=== PATIENT | male | born 1950 | race Caucasian/White ===

== ENCOUNTER 2023-07-16 17:25 | Emergency (ER) | payer MEDICARE, BC, SELFPAY ==
[2023-07-16 17:42] VITALS: BP 150/94; PULSE 87; RESP 16; TEMP 36.2; O2SAT 98; BMI 25.8
--- NOTE | 2023-07-16 17:49 | CRLHL7_ITS ---
For Patients: As a result of the Century Cures Act, medical imaging exams and procedure reports are released immediately into your electronic medical record. You may view this report before your referring provider. If you have questions, please contact your health care provider. Indication: Trauma. Technique: Left wrist, 3 views. Comparison: None. Findings: Bones: Comminuted intra-articular fracture of the distal radius.. Joint spaces: Unremarkable. Soft tissues: Soft tissue swelling surrounding the fracture site.. Impression: Comminuted intra-articular fracture of the distal radius. Dictated by Elkin Alicia MD @ 07/16/2023 7:55:22 PM (Electronically Signed)
--- OUTSIDE RECORDS SUMMARY | 2023-07-16 18:31 | XMS_ITS | Continuity of Care Document ---
Author Name Unknown Organization [facility] Address [address] [facility] [place] [address] Phone Care Team Providers Care Pickler Helper Name Role Phone Amador Paige Unavailable Unavailable Allergies, Adverse Reactions, Alerts Substance Reaction Status Criticality pollen extracts Nasal congestion Active No Infor mation house dust Nasal congestion Active No Informat ion Medications Medication Instructions Dosage Effective Dates (start - stop) Status Comments Tylenol Arthritis Pain 650 mg tablet,extended release take 1 tablet by ORAL route 4 times every day as needed 650 MG - Active metoprolol tartrate 25 mg tablet take 0.5 tablet by oral route every day 12.5 MG - Active Advil 200 mg tablet take 1 tablet by ora l route every 6 hours as needed with food as needed 200 MG - Active Voltaren Arthritis Pain 1 % topical gel apply 2 gram by topical route 4 times every day to the affected area(s) as needed 2.00 gram - Active lidocaine 4 % topical cream - Active Procedures Procedure Date OFFICE/OUTPATIENT VISIT, EST PT EVAL LOW COMPLEX 20 MIN THERAPEUTIC EXERCISES OFFICE VISIT, EST TELEMEDICINE 22 SCS Post Op Satellite SCS Post Op Satellite No Charge For Visit Per Prov IMPLANT NEUROELECTRODES ASC IMPLANT NEUROELECTRODES ASC INSRT/REDO SPINE N GENERATOR Foll-up eval q3mo opiod tx OFFICE VISIT, EST TELEMEDICINE Lower Back LSO Brace ORTHOTIC MGMT AND TRAINING Initial Encou nter No Charge For Visit Per Prov IMPLANT NEUROELECTRODES ASC IMPLANT NEUROELECTRODES ASC ANALYZE NEUROSTIM, COMPLEX Psych Dx Eval OFFICE/OUTPATIENT VISIT, EST OFFICE/OUTPATIENT VISIT, EST INJ FORAMEN EPIDURAL L/S BILATERAL OFFICE/OUTPATIENT VISIT, NEW Advance Directives Directive Yes / No Effective Date File Name No Information Encounters Encounter Description Practice Location Reason(s) For Visit Diagnoses Date Provider Providers Copied on Encounter [facility] [place] [facility], [address] [place] [address], [id number] , [place] tel:[phone] [facility] [place] [facility] [place] No Information 3 Ama English. [address] [facility] [address], [place], [id number] , [place]. tel:[phone] [facility] [place] [facility], [address], [place], [id number] , [place] tel:[phone] [facility] [place] [facility] [place] Radiculopathy, lumbar region 3 Jose Wall. [address] [place], [id number] , [place]. tel:[phone] Referring Provider: Amador Serrato, [address], [place], [address] . tel:[phone] OFFICE/OUTPAT IENT VISIT, EST [facility] [place] [facility], [address], [place], [id number] , [place] tel:[phone] [facility] [place] [facility] Peculiar Back Pain (chief complaint) Chronic pain syndromeSpondylosi s without myelopathy or radiculopathy, lumbar regionOther intervertebral disc degeneration, lumbar regionRadiculopath y, lumbar regionMyalgia, other siteOther group home (current) drug therapy 2 Ama English. [address], [place], [id number] , [place]. tel: [phone] Referring Provider: Duke Chou, [address] [place] [address] [place], [address] . tel:[phone] [facility] [place] [facility], [address] [place] [address] [place], [id number] , [place] tel: [phone] [facility] lumbago (chief complaint) Spondylosis without myelopathy or radiculopathy, lumbar regionRadiculopath y, lumbar region Ascencion-0 2 Lakshmi Gardiner Richard. [address] [place], [place] [address], [id number] , [place]. tel: [phone] Referring Provider: Aamdor Serrato, [address] [place] [address] [address], [place], [address] . tel:[phone] OFFICE VISIT, [facility] TELEMEDICINE [facility] [place] [facility], [address] [place] [address], [id number] , [place] tel: [phone] [facility] [place] [facility] Back Pain (chief complaint) Other intervertebral disc degeneration, lumbar regionChronic pain syndromeSpondylosi s without myelopathy or radiculopathy, lumbar regionMyalgia, other siteOther group home (current) drug therapyRadiculopat hy, lumbar region Dec-2 - 2 Ama English. [address] [place] [address] [address], [place], [place], [id number] , [place]. tel: [phone] Referring Provider: Duke Chou, [address] [place], [place] [address], [address] . tel:[phone] [facility] [place] [facility], [address] [place] [address], [id number] , [place] tel: [phone] [facility] [place] [facility] Radiculopathy, lumbar region Dec-1 - 2 Ama English. [address] [place] [address] [address], [place], [place], [id number] , [place]. tel: [phone] Referring Provider: Amador Serrato, [address] [place] [address] [address], [place], [address] . tel:[phone] [facility] [place] [facility], [address], [place], [id number] , [place] tel: [phone] [facility] Elsie Radiculopathy, lumbar region Dec-0 2 Campos Heriberto. [facility], [address], [place], [address], [place]. tel: [phone] Referring Provider: Amador Serrato, [address] [place] [address] [address], [place], [address] . tel:[phone] OFFICE VISIT, EST TELEMEDICINE [facility] [place] [facility], [address] [place] [address], [id number] , [place] tel: [phone] [facility] [place] [facility] Radiculopathy, lumbar region 2 Ama English. [address] [place] [address] [address], [place], [place], [id number] , [place]. tel: [phone] [facility] [place] [facility], [address] [place] [address], [id number] , [place] tel: [phone] [facility] [place] [facility] No Information 2 Ama English. [address] [place] [address] [address], [place], [place], [id number] , [place]. tel: [phone] Referring Provider: Amador eSrrato, [address] [place] [address] [address], [place], [address] . tel:[phone] [facility] [place] [facility], [address] [place] [address], [id number] , [place] tel: [phone] [facility] [place] [facility] P[facility]uliar Radiculopathy, lumbar regionOther intervertebral disc degeneration, lumbar region 2 Ama English. [address] [place] [address] [address], [place], [place], [id number] , [place]. tel: [phone] Referring Provider: Amador Serrato, [address] [place] [address] [address], [place], [address] . tel:[phone] [facility] [place] [facility], [address] [place] [address], [id number] , [place] tel: [phone] [facility] Elsie Radiculopathy, lumbar region 2 Beth Louis. [facility], [address], [place], [address], [place]. tel: [phone] Referring Provider: Amador Serrato, [address] [place] [address] [address], [place], [address] . tel:[phone] Psych Dx Eval [facility] [place] [facility], [address] [place] [address], [id number] , [place] tel: [phone] Telehealth Pain disorder with related psychological factors 2 Deborah [place]. [address] [place] [address], [id number] , [place]. tel: [phone] Referring Provider: Duke Chou, [address] [place] [address], [address] . tel:[phone] OFFICE/OUTPAT IENT VISIT, [facility], [address] [place] [address], [id number] , [place] tel:[phone] [facility] [place] [facility] Back Pain (chief complaint) Chronic pain syndromeRadiculopa thy, lumbar regionMyalgia, other siteOther termite control servicer (current) drug therapySpondylosis without myelopathy or radiculopathy, lumbar regionOther intervertebral disc degeneration, lumbar region 2 Ama English. [address] [place] [address] [address], [place], [place], [id number] , [place]. tel: [phone] Referring Provider: Amador Serrato, [address] [place] [address] [address], [place], [address] . tel:[phone] OFFICE/OUTPAT IENT VISIT, [facility], [address] [place] [address], [id number] , [place] tel: [phone] [facility] [place] [facility] Back Pain (chief complaint) Chronic pain syndromeRadiculopa thy, lumbar regionMyalgia, other siteOther group home (current) drug therapy 1 Ama English. [address] [facility], [place], [place], [id number] , [place]. tel:[phone] Referring Provider: Amador Serrato, [facility] [facility], [place], [address] . tel:[phone] [facility] [place] [facility], [address], [place], [id number] , [place] tel: [phone] [facility] Elsie Radiculopathy, lumbar region 1 Beth Louis. [facility], [address], [place], [address], [place]. [phone] Referring Provider: Amador Serrato, [facility] [facility] [address] [facility] [address], [place], [address] . tel:[phone] OFFICE/OUTPAT IENT VISIT, [facility], [address], [place], [id number] , [place] tel:[phone] [facility] [place] [facility] Peculiar Back Pain (chief complaint) Chronic pain syndromeRadiculopa thy, lumbar regionMyalgia, other siteEncounter for screening for other disorder 1 Ama English. [address] [place] [address] [address], [place], [place], [id number] , [place]. tel:[phone] Referring Provider: Duke Chou, [address] [facility] [place], [address] . tel:[phone] Family History Family Member Type Diagnosis Age At Onset Problem Family history of chronic ba ck pain Payers Payer name Insurance type Covered constitution party ID [employer] wing(s) Medicare MB [id number] Social History Type Description Quantity Date Captured Comments Alcohol Use Details Unknown Caffeine Use Details Unknown Tobacco Use Status No Information Smoking Status No Information Sex Male Chief Complaint And Reason For Visit No Information Reason For Referral Reason For Referral No Information Plan Of Treatment Date Type Action Status Goal FIT. Due on due Goal Lipid panel. Due on due Goal Update Social Hi story. Due on due Goal Height. Due on d ue Goal Tobacco Use. Due on due Goal Medication Recon ciliation. Due on due Goal CT-Colonography. Due on due Goal Zoster vaccine ( 1st). Due on due Goal Hepatitis C scre ening. Due on due Goal Review Allergy L ist. Due on due Goal FIT-DNA. Due on due Goal PHQ-9. Due on du e Goal Weight. Due on d ue Goal Unhealthy drug u se screening. Due on due Goal Zoster vaccine ( ). Due on due Goal Lipid panel. Due on due Goal Height. Due on d ue Goal FIT. Due on due Goal Update Social Hi story. Due on due Goal Tobacco Use. Due on due Goal Review Allergy L ist. Due on due Goal Medication Recon ciliation. Due on due Goal FIT-DNA. Due on due Goal CT-Colonography. Due on due Goal PHQ-9. Due on du e Goal Hepatitis C scre ening. Due on due Goal Unhealthy drug u se screening. Due on due Goal Weight. Due on d ue Goal CT-Colonography. Due on due Goal Review Allergy L ist. Due on due Goal Medication Recon ciliation. Due on due Goal PHQ-9. Due on du e Goal Unhealthy drug u se screening. Due on due Goal Height. Due on d ue Goal Zoster vaccine ( ). Due on due Goal Hepatitis C scre ening. Due on due Goal Update Social Hi story. Due on due Goal Lipid panel. Due on due Goal FIT. Due on due Goal Tobacco Use. Due on due Goal Weight. Due on d ue Goal FIT-DNA. Due on due Goal Hepatitis C scre ening. Due on due Goal Medication Recon ciliation. Due on due Goal Review Allergy L ist. Due on due Goal Update Social Hi story. Due on due Goal Weight. Due on d ue Goal Height. Due on d ue Goal Unhealthy drug u se screening. Due on due Goal FIT-DNA. Due on due Goal PHQ-9. Due on du e Goal Zoster vaccine ( 1st). Due on due Goal Lipid panel. Due on due Goal CT-Colonography. Due on due Goal FIT. Due on due Goal Tobacco Use. Due on due Goal Review Allergy L ist. Due on due Goal PHQ-9. Due on du e Goal Height. Due on d ue Goal Tobacco Use. Due on due Goal Update Social Hi story. Due on due Goal Weight. Due on d ue Goal Medication Recon ciliation. Due on due Goal Weight. Due on d ue Goal Medication Recon ciliation. Due on due Goal PHQ-9. Due on du e Goal Review Allergy L ist. Due on due Goal Tobacco Use. Due on due Goal Update Social Hi story. Due on due Goal Height. Due on d ue Goal Height. Due on d ue Goal Tobacco Use. Due on due Goal PHQ-9. Due on du e Goal Update Social Hi story. Due on due Goal Weight. Due on d ue Goal Review Allergy L ist. Due on due Goal Medication Recon ciliation. Due on due Goal Tobacco Use. Due on due Goal Review Allergy L ist. Due on due Goal Weight. Due on d ue Goal Medication Recon ciliation. Due on due Goal PHQ-9. Due on du e Goal Update Social Hi story. Due on due Goal Height. Due on d ue Goal Review Allergy L ist. Due on due Goal PHQ-9. Due on du e Goal Tobacco Use. Due on due Goal Update Social Hi story. Due on due Goal Medication Recon ciliation. Due on due Goal Weight. Due on d ue Goal Height. Due on d ue Goal Medication Recon ciliation. Due on due Goal Height. Due on d ue Goal Tobacco Use. Due on due Goal PHQ-9. Due on du e Goal Weight. Due on d ue Goal Update Social Hi story. Due on due Goal Review Allergy L ist. Due on due Goal Height. Due on d ue Goal Tobacco Use. Due on 022 due Goal Weight. Due on d ue Goal Review Allergy L ist. Due on due Goal Medication Recon ciliation. Due on due Goal PHQ-9. Due on du e Goal Update Social Hi story. Due on due Goal Height. Due on d ue Goal Medication Recon ciliation. Due on due Goal Review Allergy L ist. Due on due Goal Update Social Hi story. Due on due Goal Tobacco Use. Due on due Goal Weight. Due on d ue Goal PHQ-9. Due on du e Goal Review Allergy L ist. Due on due Goal PHQ-9. Due on du e Goal Tobacco Use. Due on due Goal Medication Recon ciliation. Due on due Goal Update Social Hi story. Due on due Goal Weight. Due on d ue Goal Height. Due on d ue Future Order: Radiology Order MR I Lumbar Spine W/O Dye ([id number]), Ordered on: Ordered History Of Present Illness Encounter Date Complaint History Of Flaquita nt Illness Back Pain Severity level i s 4. Duration: chronic. The problem is fluctuating. It occurs intermittently. Pain is radiated to the left ankle, right ankle, left calf, right calf, left foot and right foot. The client describes the pain as an ache and tingling. Symptoms are aggravated by standing and walking. Symptoms are relieved by lying down, over the counter medication, pain meds/drugs, rest and changing positions. Comments: Amador presents for follow-up regarding low back pain. Reports pain has been fluctuating since [place]. Notes occasional flares. Utilizes Tylenol during flares. Continues to be active on his bike. States he rode ~43 miles in one day last week.S/p [employer] lumbar SCS implant on 01/04/[address] Avery. States he is currently getting about 50% relief of lower back and BLE pain. May be interested in reprogramming with [employer] rep.Of note, he recently traveled to [place] and [place] and enjoyed his trip.He is not accompanied today and denies additional concerns. lumbago Patient is a 71 year old male presenting s/p lumbar SCS implant. He states that he has been getting fairly significant relief. He presents today with complaints of low back pain into his left leg to his foot and ankle. He states that this only occur when he standing and walks. He notes that he has discussed these symptoms with his rep at this point. He does note that he has been able to be much more active following the SCS implant. He would like to continue to decrease his overall discomfort to allow him to perform his daily, functional activities with less limitation and an improved quality of life. Back Pain Severity level i s 4. Duration: chronic. The problem is improving. It occurs intermittently. Location of pain is left calf and left ankle.The patient describes the pain as an ache and tingling. Symptoms are aggravated by standing and walking. Symptoms are relieved by lying down, pain meds/drugs, stretching and changing positions. Back Pain (comments) Amador ents for virtual follow-up and 2 week post-op wound check. S/p [employer] lumbar SCS implant on 01/04/[address] Avery. States he is currently getting about 50% relief of lower back and BLE pain. Notes some post-op pain, but states that it has been manageable. He is excited to become active again as the weather gets warmer and his activity restrictions are lifted. Notes that he cannot wait to get back to biking. Prior to implant, patient was taking #4-5 tabs of Tylenol everyday. Notes that he has taken #4-5 tabs of Tylenol total over the past two weeks since implant. He is not accompanied today and denies additional concerns. Back Pain (comments) Amador is h ere for follow-up. He is followed for lower back pain radiating down his L leg and into his L calf and medial foot. Also, details loss of sensation in his L greater toe. Pain rarely radiates into RLE. S/p BL L5-S1 TFESI with Dr. Avery on 08/13/21 with minimal benefit. Of note, patient did not trial Cymbalta since last OV because it was $100. Also notes that he has hesitations with taking any medication that has the SE of drowsiness. Most of today's OV was spent discussing updated imaging and available treatment options. Discussed repeat injections, medication management, SCS trial, and surgical referral. Patient expresses interest in SCS trial. He is not accompanied and has no other concerns today. Back Pain Severity level i s 2. Duration: chronic. The problem is fluctuating. It occurs intermittently. Location of pain is lower back, legs, L calf and L gluteal area.The patient describes the pain as an ache, dull and tingling. Symptoms are aggravated by standing, walking and movement. Symptoms are relieved by pain meds/drugs, rest and changing positions. Back Pain (comments) Amador is h ere for initial follow-up. He is followed for lower back pain radiating down his L leg and into his L calf and medial foot. Also, details loss of sensation in his L greater toe. S/p BL L5-S1 TFESI with Dr. Avery. Patient states his pain is the same as it was before the injection. Most of today's OV, was spent discussing available treatment options and patient is agreeable to updated imaging. Specifically discussed referral for surgical consult for discectomy vs repeat LESI, patient will consider pending updated imaging results.He is not accompanied and has no other concerns. Back Pain Duration: chroni c. The problem is fluctuating. It occurs persistently. Location of pain is lower back and legs.The patient describes the pain as an ache, burning and sharp. Symptoms are aggravated by bending, lifting, standing, twisting and walking. Symptoms are relieved by pain meds/drugs and rest. Back Pain (comments) Amador is h ere for initial consult for lower back and leg pain. He is referred by family. The patient is a 71 y/o male who presents with lower back pain that has gradually worsened over the past year. He previously followed at [facility] for imaging and work-up. States pain occurs in his lower back and radiating down his L leg and into his L calf and medial foot. Also, details loss of sensation in his L greater toe. Of note, he details living a very active lifestyle. States he is an avid biker which does not aggravate his lower back pain. Details significant pain with walking. The patient is currently managing his pain on Tylenol, Advil, and Naproxen PRN. He has also been utilizing topical Voltaren gel and lidocaine cream with benefit. Patient is interested in pain management options offered through [facility]. Specifically discussed ESIs and medication management. Patient would like to trial an injection first. He is not accompanied today and has no other concerns. Back Pain Duration: chroni c. Location of pain is lower back and legs.The patient describes the pain as an ache, sharp and tingling. Symptoms are aggravated by ascending stairs, descending stairs, standing, walking and housework. Symptoms are relieved by lying down, pain meds/drugs, physical therapy, stretching, rest and chiropractic. Functional Status Date Functional Assessmen t No Information Instructions Date Instruction Additional Infor mation No Information Assessments Type Assessment Date No Information Patient Care Teams Name Effective Dates (start - stop) Status Members No Information
--- OUTSIDE RECORDS SUMMARY | 2023-07-16 18:31 | XMS_ITS | Continuity of Care Document ---
Author Name Unknown Organization [facility] Address [address] [facility] [place] [address] Phone Care Team Providers Care Soup Mixer Name Role Phone Amador Paige Unavailable Unavailable [...] day as needed 650 MG - Active lidocaine 4 % topical cream - Active Voltaren Arthritis Pain 1 % topical gel apply 2 gram by topical route 4 times every day to the affected area(s) as needed 2.00 gram - Active Advil 200 mg tablet take 1 tablet by ora l route every 6 hours as needed with food as needed 200 MG - Active metoprolol tartrate 25 mg tablet take 0.5 tablet by oral route every day 12.5 MG - Active Procedures Procedure Date OFFICE/OUTPATIENT VISIT, [...] Date Provider Providers Copied on Encounter [facility], [address] [place] [address], [id number] , [place] tel:[phone] [facility] [place] No Information 3 Ama English. [address] [facility] [address], [place], [id number] , [place]. tel:[phone] [facility], [address] [place], [place], [id number] , [place] tel:[phone] [facility] [place] Radiculopathy, lumbar region 3 Jose Wall. [address] [place], [place], [id number] , [place]. tel:[phone] Referring Provider: Amador Serrato, [address] [facility] [address], [place], [address] . tel:[phone] OFFICE/OUTPAT IENT VISIT, EST [facility], [address] [place], [place], [id number] , [place] tel:[phone] [facility] [place] Back Pain (chief complaint) Chronic pain syndromeSpondylosi s without myelopathy or radiculopathy, lumbar regionOther intervertebral disc degeneration, lumbar regionRadiculopath y, lumbar regionMyalgia, other siteOther assisted (current) drug therapy 2 Ama English. [address] [facility] [address], [place], [id number] , [place]. tel: [phone] Referring Provider: Duke Chou, [address] [place] [address] [place], [address] . tel:[phone] [facility], [address] [place] [address] [place], [id number] , [place] tel: [phone] [facility] lumbago (chief complaint) Spondylosis without myelopathy or radiculopathy, lumbar regionRadiculopath y, lumbar region Ascencion-0 2 Lakshmi Gardiner Richard. [address] [place], [place] [address], [id number] , [place]. tel: [phone] Referring Provider: Amador Serrato, [address] [place] [address] [address], [place], [address] . tel:[phone] OFFICE VISIT, [facility] TELEMEDICINE [facility], [address] [place] [address], [id number] , [place] tel: [phone] [facility] Back Pain (chief complaint) Other intervertebral disc degeneration, lumbar regionChronic pain syndromeSpondylosi s without myelopathy or radiculopathy, lumbar regionMyalgia, other siteOther assisted (current) drug therapyRadiculopat hy, lumbar region Dec-2 - 2 Ama English. [address] [place] [address] [address], [place], [place], [id number] , [place]. tel: [phone] Referring Provider: Duke Chou, [address] [place], [place] [address], [address] . tel:[phone] [facility], [address] [place] [address], [id number] , [place] tel: [phone] [facility] Radiculopathy, lumbar region Dec-1 - 2 Ama English. [address] [place] [address] [address], [place], [place], [id number] , [place]. tel: [phone] Referring Provider: Amador Serrato, [address] [place] [address] [address], [place], [address] . tel:[phone] [facility], [address] [place], [place], [id number] , [place] tel: [phone] [facility] Radiculopathy, lumbar region Dec-0 2 Campos Heriberto. [facility], [address], [place], [address], [place]. tel: [phone] Referring Provider: Amador Serrato, [address] [place] [address] [address], [place], [address] . tel:[phone] OFFICE VISIT, EST TELEMEDICINE [facility], [address] [place] [address], [id number] , [place] tel: [phone] [facility] Radiculopathy, lumbar region 2 Ama English. [address] [place] [address] [address], [place], [place], [id number] , [place]. tel: [phone] [facility], [address] [place] [address], [id number] , [place] tel: [phone] [facility] No Information 2 Ama English. [address] [place] [address] [address], [place], [place], [id number] , [place]. tel: [phone] Referring Provider: Amador Serrato, [address] [place] [address] [address], [place], [address] . tel:[phone] [facility], [address] [place] [address], [id number] , [place] tel: [phone] [facility] [place] Radiculopathy, lumbar regionOther intervertebral disc degeneration, lumbar region 2 Ama English. [address] [place] [address] [address], [place], [place], [id number] , [place]. tel: [phone] Referring Provider: Amador Serrato, [address] [place] [address] [address], [place], [address] . tel:[phone] [facility], [address] [place] [address], [id number] , [place] tel: [phone] [facility] Radiculopathy, lumbar region 2 Beth Louis. [facility], [address], [place], [address], [place]. tel: [phone] Referring Provider: Amador Serrato, [address] [place] [address] [address], [place], [address] . tel:[phone] Psych Dx Eval [facility], [address] [place] [address], [id number] , [place] tel: [phone] Telehealth Pain disorder with related psychological factors 2 Deborah Nj. [address] [place] [address], [id number] , [place]. tel: [phone] Referring Provider: Duke Chou, [address] [place] [address], [address] . tel:[phone] OFFICE/OUTPAT IENT VISIT, [facility], [address] [place] [address], [id number] , [place] tel:[phone] [facility] Back Pain (chief complaint) Chronic pain syndromeRadiculopa thy, lumbar regionMyalgia, other siteOther termite exterminator helper (current) drug therapySpondylosis without myelopathy or radiculopathy, lumbar regionOther intervertebral disc degeneration, lumbar region 2 Ama English. [address] [place] [address] [address], [place], [place], [id number] , [place]. tel: [phone] Referring Provider: Amador Serrato, [address] [place] [address] [address], [place], [address] . tel:[phone] OFFICE/OUTPAT IENT VISIT, [facility], [address] [place] [address], [id number] , [place] tel: [phone] [facility] Back Pain (chief complaint) Chronic pain syndromeRadiculopa thy, lumbar regionMyalgia, other siteOther assisted (current) drug therapy 1 Ama English. [facility] [facility] [address], [place], [place], [id number] , [place]. tel:[phone] Referring Provider: Amador Serrato, [facility] [facility] [address], [place], [address] . tel:[phone] [facility], [address] [place], [place], [id number] , [place] [phone] [facility] Radiculopathy, lumbar region 1 Beth Louis. [facility], [address], [place], [address], [place]. tel:[phone] Referring Provider: Amador Serrato, [facility] [facility] [address], [place], [address] . tel:[phone] OFFICE/OUTPAT IENT VISIT, [facility], [address] [place], [place], [id number] , [place] tel:[phone] [facility] [place] Back Pain (chief complaint) Chronic pain syndromeRadiculopa thy, lumbar regionMyalgia, other siteEncounter for screening for other disorder 1 Ama English. [address] [place] [address] [address], [place], [place], [id number] , [place]. tel:[phone] Referring Provider: Duke Chou, [address] [facility] [place], [address] . tel:[phone] Family History Family Member Type Diagnosis Age At Onset Problem Family history of chronic ba ck pain Payers Payer name Insurance type Covered democrat ID Almas wing(s) Medicare MB [id number] Social History Type Description Quantity Date Captured Comments Alcohol Use Details Unknown Caffeine Use Details Unknown Tobacco Use Status No Information Smoking Status No Information Sex Male Chief Complaint And Reason For Visit No Information Reason For Referral Reason For Referral No Information Plan Of Treatment Date Type Action Status Goal Zoster vaccine ( 1st). Due on due Goal Hepatitis C scre ening. Due on due Goal Review Allergy L ist. Due on due Goal FIT-DNA. Due on due Goal PHQ-9. Due on du e Goal Weight. Due on d ue Goal Unhealthy drug u se screening. Due on due Goal FIT. Due on due Goal Lipid panel. Due on 023 due Goal Update Social Hi story. Due on due Goal Height. Due on d ue Goal Tobacco Use. Due on 023 due Goal Medication Recon ciliation. Due on due Goal CT-Colonography. Due on due Goal Medication Recon ciliation. Due on due Goal FIT-DNA. Due on due Goal CT-Colonography. Due on due Goal PHQ-9. Due on du e Goal Hepatitis C scre ening. Due on due Goal Unhealthy drug u se screening. Due on due Goal Weight. Due on d ue Goal Zoster vaccine ( 1st). Due on due Goal Lipid panel. Due on 023 due Goal FIT. Due on due Goal Update Social Hi story. Due on due Goal Tobacco Use. Due on 023 due Goal Review Allergy L ist. Due on due Goal Height. Due on d ue Goal CT-Colonography. Due [...] on due Goal Tobacco Use. Due on 022 due [...] Goal Tobacco Use. Due on due Goal Height. Due on d ue Goal PHQ-9. Due on du e Goal Review Allergy L ist. Due on due Goal Height. Due on d ue Goal Update Social Hi story. Due on due Goal Tobacco Use. Due on due Goal Review Allergy L ist. Due on due Goal PHQ-9. Due on du e Goal Medication Recon ciliation. Due on due [...] Goal Height. Due on d ue Goal Update Social [...] Goal Tobacco Use. Due on due Goal Height. Due on d ue Goal Weight. Due on d ue Goal [...] due Goal Weight. 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 Back Pain Severity level i s 4. [...] medication, pain meds/drugs, rest and changing positions. lumbago Patient is a 71 year old [...] an improved quality of life. Back Pain (comments) Amador pres ents for virtual follow-up and 2 week [...] today and denies additional concerns. Back Pain Severity level i s 4. Duration: chronic. The problem is improving. It occurs intermittently. Location of pain is left calf and left ankle.The patient describes the pain as an ache and tingling. Symptoms are aggravated by standing and walking. Symptoms are relieved by lying down, pain meds/drugs, stretching and changing positions. Back Pain Severity level i s 2. [...] has no other concerns today. Back Pain Duration: chroni c. The problem [...] meds/drugs, physical therapy, stretching, rest and chiropractic. Back Pain (comments) Amador is h ere for initial consult for lower back and leg pain. He is referred by family. The patient is a 71 y/o male who presents with lower back pain that has gradually worsened over the past year. He previously followed at [facility] for imaging and work-up. States pain occurs [...] interested in pain management options offered through [facility]. Specifically discussed ESIs and medication management. Patient would like to trial an injection first. He is not accompanied today and has no other concerns. Functional Status Date Functional Assessmen t No Information Instructions Date Instruction Additional Infor mation No Information Assessments Type Assessment Date No Information Patient Care Teams Name Effective Dates (start - stop) Status Members No Information
--- OUTSIDE RECORDS SUMMARY | 2023-07-16 18:31 | XMS_ITS | Continuity of Care Document ---
Author Name Unknown Organization [facility] Address [address] [address] [place] [address] Phone Care Team Providers Care Gas Generator Operator Name Role Phone Tash Hayes CRNA Unavailable Unavailable Allergies, Adverse Reactions, Alerts Substance Reaction Status Criticality mold Active No Information WARNIN allergy(ies) could not be collected because the type is not supported. Please contact the source practice for further details. Medications Medication Instructions Dosage Effective Dates (start - stop) Status Comments metoprolol succinate ER 25 mg tablet,extended release 24 hr take 1/2 tablet by oral route every day - Active SIMVASTATIN (unknown strength) take 1 tablet by oral route every day in the evening Not Available - Active Fiber Gummies 2 gram chewable tablet take 1 tablet by oral route every day 1 tablet - Active Procedures Procedure Date Colorectal Ca Scrn Not Hi Risk Colorectal Ca Scrn Not Hi Risk 20 Advance Directives Directive Yes / No Effective Date File Name No Information Encounters Encounter Description Practice Location Reason(s) For Visit Diagnoses Date Provider Providers Copied on Encounter [facility], [address] [address], [place], [place], [id number], [place] tel:[phone] [place] [facility] No Information 0 Freddy Bianchi. [address] [facility], [place], [place], [id number] , [place]. tel:[phone] Referring Provider: Sera Massey, [address] [facility] [address], [place], [address] . tel:[phone] [facility], [address] [address], [place], [id number], [place] tel:[phone] [facility] Screening ColonoscopyDivertic ulosis of colon without diverticulitisEncou nter for screening for malignant neoplasm of colonDvrtclos of lg int w/o perforation or abscess w/o bleeding Sep-1 0-202 0 Kita Zamora . [address] [facility], [place], [id number] , [place]. [phone] Referring Provider: Yakov Morse MD, [address] [place] [address], [address]. tel:[phone] [facility], [address] [address], [place], [id number], [place] tel:[phone] [facility] Screening ColonoscopyEncounte r for screening for malignant neoplasm of colon Sep-0 9 0 Mati Guillen. [address] [facility], [facility] [place], [id number] , [place]. [phone] Referring Provider: Referral Self. [facility], [address] [address], [place], [id number], [place] tel:[phone] [facility] No Information Sep-0 0 Mati Guillen. [address] [facility], [facility] [address], [employer] [place], [place], [id number] , [place]. [phone] Family History Family Member Type Diagnosis Age At Onset No Information Immunizations Vaccine Date Status Comments influenza, high dose seasona l, preservative-free administered Note: [facility] bi-direct ional interface ; Source: Other Registry influenza, high dose seasona l, preservative-free administered Note: [facility] bi-direct ional interface ; Source: Other Registry Influenza administered Note: [facility] bi-d irectional interface ; Source: Other Registry Prevnar 13 administered Note: [facility] bi-d irectional interface ; Source: Other Registry zoster vaccine, live administered Note: [facility] bi-directional interface ; Source: Other Registry Pneumovax 23 administered Note: [facility] bi-d irectional interface ; Source: Other Registry Fluzone Quad 6mo or older administered Note: [facility] bi-direct ional interface ; Source: Other Registry Influenza, seasonal, injecta ble, preservative free administered Note: [facility] bi-direct ional interface ; Source: Other Registry tetanus toxoid, reduced diphtheria toxoid, and acellular pertussis vaccine, adsorbed administered Note: [facility] b i-directional interface ; Source: Other Registry Influenza, seasonal, injectable administe red Note: [facility] bi- directional interface ; Source: Other Registry Novel [id number], all formulations administered Note: [facility] bi-direct ional interface ; Source: Other Registry Influenza, seasonal, injectable administe red Note: [facility] bi- directional interface ; Source: Other Registry Influenza, seasonal, injectable administe red Note: [facility] bi- directional interface ; Source: Other Registry tetanus and diphtheria toxoi ds, adsorbed, preservative free, for adult use (2 Lf of tetanus toxoid and 2 Lf of diphtheria toxoid) administered Note: [facility] bi-direct ional interface ; Source: Other Registry Influenza, seasonal, injectable administe red Note: [facility] bi- directional interface ; Source: Other Registry Payers Payer name Insurance type Covered constitution party ID Authoriza tion(s) Medicare NGS [id number] [facility] Medicare Supplement BL [id number] Social History Type Description Quantity Date Captured Comments Sex Male Smoking Status No Information Chief Complaint And Reason For Visit No Information Reason For Referral Reason For Referral No Information History Of Present Illness Encounter Date Complaint History Of Prese nt Illness No Information Functional Status Date Functional Assessmen t No Information Instructions Date Instruction Additional Infor mation Colon Cancer Prevention Related to Screening Colonoscopy High Fiber Diet Related to Scree yun Colonoscopy Diverticulosis/Diverticulitis Re lated to Screening Colonoscopy Colon Cancer Prevention Related to Screening Colonoscopy Assessments Type Assessment Date No Information Patient Care Teams Name Effective Dates (start - stop) Status Members No Information
--- OUTSIDE RECORDS SUMMARY | 2023-07-16 18:31 | XMS_ITS | Continuity of Care Document ---
Author Name Unknown Organization [facility] Address [address] [place] [address] Care Team Providers Care Shaft Sinker Name Role Phone Reji Greer CRNA Unavailable Unavailable Procedures Procedure Date ANESTH, HEAD/NECK/PTRUNK Percutaneous Image guided neuromodulatio n or intra Advance Directives Directive Yes / No Effective Date File Name No Information Encounters Encounter Description Practice Location Reason(s) For Visit Diagnoses Date Provider Providers Copied on Encounter [facility], [address] [place], [place], [id number], [facility] No Information 2 Percy Mendoza. [address] [place], [place], [id number] , . [phone] Referring Provider: Heriberto Campos [facility] [address] [facility] [address], [place], [address]. tel:[phone] [facility], [address] [place], [place], [id number], [facility] No Information 2 Andrew Fried. [address] [facility], [place], [place], [id number] , . [phone] Referring Provider: Heriberto Campos [facility] [address], [place], [address]. tel:[phone] Family History Family Member Type Diagnosis Age At Onset No Information Payers Payer name Insurance type Covered alliance party ID Authorflorecita wing(s) Medicare MB [id number] Social History Type Description Quantity Date Captured [...]
--- OUTSIDE RECORDS SUMMARY | 2023-07-16 18:31 | XMS_ITS | Continuity of Care Document ---
Author Name Unknown Organization [facility] Address [address] [place] [address] Phone Care Team Providers Care Computer Operations Manager Name Role Phone Yakov Felipe Unavailable Unavailable Allergies, Adverse Reactions, Alerts Substance Reaction Status Criticality No Known Allergies Active No Inform ation Medications Medication Instructions Dosage Effective Dates (start - stop) Status Comments METOPROLOL SUCCINATE (unknown strength) Not Available - Active Procedures Procedure Date Office/Outpatient Visit,Jan Riddle 2020 Advance Directives Directive Yes / No Effective Date File Name No Information Encounters Encounter Description Practice Location Reason(s) For Visit Diagnoses Date Provider Providers Copied on Encounter [facility], [address], [place], [place], [id number], [place] tel:[phone] [facility] No Information Jm Nagy. [facility], [address] [facility] [address], [place], [place], [id number] , [place]. tel:[phone] Office/Outpat ient Visit,[facility], [address], [place], [place], [id number], [place] tel:[phone] [facility] Other spondylosis, lumbar region Jm Nagy. [facility], [address], [place], [place], [id number] , [place]. tel:[phone] Referring Provider: Yakov Hu, [facility] [address], [address]. tel:[phone] Family History Family Member Type Diagnosis Age At Onset No Information Payers Payer name Insurance type Covered libertarian ID Almas wing(s) [facility] [id number] Medicare Kunal ISBELL [id number] Social History Type Description Quantity Date Captured [...]
--- OUTSIDE RECORDS SUMMARY | 2023-07-16 18:31 | XMS_ITS | Continuity of Care Document ---
Author Name Unknown Organization [facility] Address [address] [address] [place] [address] Phone Care Team Providers Care Adjunct Psychology Faculty Member Name Role Phone Tash Hayes CRNA Unavailable [...] Diagnoses Date Provider Providers Copied on Encounter [facility], [address] [address], [place], [place], [id number], [place] tel:[phone] Peyton [facility] No Information 0 Freddy Bianchi. [address] [facility], [place], [place], [id number] , [place]. tel:[phone] Referring Provider: Sera Massey, [address] [facility] [address], [place], [address] . tel:[phone] [facility], [address] [address], [place], [id number], [place] tel:[phone] [facility] Screening ColonoscopyDivertic ulosis of colon without diverticulitisEncou nter for screening for malignant neoplasm of colonDvrtclos of lg int w/o perforation or abscess w/o bleeding Sep-1 0-202 0 Kita Zamora . [address] [facility], [address], [place], [id number] , [place]. [phone] Referring Provider: Yakov Morse MD, [address] [place] [address], [address]. tel:[phone] [facility], [address] [address], [place], [id number], [place] tel:[phone] [facility] Screening ColonoscopyEncounte r for screening for malignant neoplasm of colon Sep-0 9 0 Mati Guillen. [address] [facility], [address], [facility] [place], [id number] , [place]. [phone] Referring Provider: Referral Self. [facility], [address] [address], [place], [id number], [place] tel:[phone] [facility] No Information Sep-0 0 Mati Guillen. [address] [facility], [facility] [address], [facility] [place], [id number] , [place]. [phone] Family History Family Member Type Diagnosis Age [...] directional interface ; Source: Other Registry Novel [id number], all formulations administered Note: MIIC bi-direct ional [...] constitution party ID Authoriza tion(s) Medicare NGS [id number] [facility] Medicare Supplement BL [id number] Social History Type Description Quantity Date Captured [...]
--- OUTSIDE RECORDS SUMMARY | 2023-07-16 18:31 | XMS_ITS | Continuity of Care Document ---
Author Name Unknown Organization [facility] Address [address] [place] [address] 11 [facility] [address] [place] [address] Phone Care Team Providers Care Environmental Aide Name Role Phone [facility] Unavailable Unava ilable Procedures Procedure Date IMPLANT NEUROELECTRODES INSRT/REDO SPINE N GENERATOR Implt neurostim elctr each FLUOROGUIDE FOR SPINE INJECT Inj, bupivacaine liposome IMPLANT NEUROELECTRODES Pt doc no events on discharg Pt w/o preop order iv ab pro IMPLANT NEUROELECTRODES IMPLANT NEUROELECTRODES Pt doc no events on discharg Pt w/o preop order iv ab pro INJ FORAMEN EPIDURAL L/S INJ FORAMEN EPIDURAL L/S Pt doc no events on discharg Pt w/o preop order iv ab pro Advance Directives Directive Yes / No Effective Date File Name No Information Encounters Encounter Description Practice Location Reason(s) For Visit Diagnoses Date Provider Providers Copied on Encounter [facility], [address] [place] [address], [id number], [place] tel:[phone] [facility] No Information [facility]. [address] [place] [address] 11 [facility] [address], [place], [id number], [place]. tel:[phone] Referring Provider: Heriberto Campos BuyerMLS [address] [facility] [address], [place], [address]. tel:[phone] [facility], [address] [place] [address], [id number], tel:[phone] [place] [address] [facility]. [address] [place] [address], [id number], . tel:[phone] Referring Provider: Heriberto Campos BuyerMLS [address] [facility] [address], [place], [address]. tel:[phone] [facility], [address] [place] [address], [id number], tel:[phone] [place] [address] [facility]. [address] [place] [address], [id number], . tel:[phone] Referring Provider: Heriberto Campos BuyerMLS [address] [facility] [address], [place], [address]. tel:[phone] Family History Family Member Type Diagnosis Age At Onset No Information Payers Payer name Insurance type Covered democrat ID Authoryvonnea maciej(s) Medicare MB [id number] Social History Type Description Quantity Date Captured [...]
--- OUTSIDE RECORDS SUMMARY | 2023-07-16 18:31 | XMS_ITS | Continuity of Care Document ---
Author Name Unknown Organization [facility] Address [address] [place] [address] Phone Care Team Providers Care Staffing Administrator Name Role Phone Yakov Felipe Unavailable Unavailable [...] on Encounter [facility], [address], [place], [place], [id number], [place] tel:[phone] [facility] No Information Jm Nagy. [facility], [address], [place], [place], [id number] , [place]. tel:[phone] Office/Outpat ient Visit,[facility], [address], [place], [place], [id number], [place] tel:[phone] [facility] Other spondylosis, lumbar region Jm Nagy. [facility], [address], [place], [place], [id number] , [place]. tel:[phone] Referring Provider: Yakov Hu, [facility] [address], [address]. tel:[phone] Family History Family Member Type Diagnosis Age At Onset No Information Payers Payer name Insurance type Covered libertarian ID Almas wing(s) [facility] [id number] Medicare Kunal ISBELL [id number] Social History Type Description Quantity Date [...]
--- OUTSIDE RECORDS SUMMARY | 2023-07-16 18:31 | XMS_ITS | Continuity of Care Document ---
Author Name Unknown Organization [facility] enter Address [address] [place] [address] 11 [facility] 110 [place] [address] Phone Care Team Providers Care Banking Management Consulting Manager Name Role Phone [facility] Unavailable Unava ilable Procedures Procedure Date IMPLANT [...] Diagnoses Date Provider Providers Copied on Encounter [facility], [address] [place] [address], [id number], [place] tel:[phone] [facility] No Information [facility]. [address] [place] [address] 11 [facility] [address], [place], [id number], [place]. tel:[phone] Referring Provider: Heriberto Campos NERITES [address] [facility] [address], [place], [address]. tel:[phone] [facility], [address] [place] [address], [id number], tel:[phone] [place] [address] No Information [address] [facility]. [address] [place] [address], [id number], . tel:[phone] Referring Provider: Heriberto Campos NERITES [address] [facility] [address], [place], [address]. tel:[phone] [facility], [address] [place] [address], [id number], tel:[phone] [place] [address] [facility]. [address] [place] [address], [id number], . tel:[phone] Referring Provider: Heriberto Campos NERITES [address] [facility] [address], [place], [address]. tel:[phone] Family History Family Member Type Diagnosis Age At Onset No Information Payers Payer name Insurance type Covered democrat ID Authoryvonnea maciej(s) Medicare MB [id number] Social History Type Description Quantity Date Captured [...]
--- OUTSIDE RECORDS SUMMARY | 2023-07-16 18:31 | XMS_ITS | Continuity of Care Document ---
Author Name Unknown Organization [facility] Address [address] [place] [address] Care Team Providers Care Typewriter Assembler Name Role Phone Reji Greer CRNA Unavailable Unavailable Procedures Procedure Date ANESTH, HEAD/NECK/PTRUNK Percutaneous Image guided neuromodulatio n or intra Advance Directives Directive Yes / No Effective Date File Name No Information Encounters Encounter Description Practice Location Reason(s) For Visit Diagnoses Date Provider Providers Copied on Encounter [facility], [address] [place], [place], [id number], [facility] No Information 2 Percy Mendoza. [address] [place], [place], [id number] , . [phone] Referring Provider: Heriberto Campos [facility] [address] [facility] [address], [place], [address]. tel:[phone] [facility], [address] [place], [place], [id number], [facility] No Information 2 Andrew Fried. [address] [facility], [place], [place], [id number] , . [phone] Referring Provider: Heriberto Campos [facility] [address], [place], [address]. tel:[phone] Family History Family Member Type Diagnosis Age At Onset No Information Payers Payer name Insurance type Covered libertarian ID Authorflorecita wing(s) Medicare MB [id number] Social History Type Description Quantity Date Captured [...]
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
[2023-07-16 20:21] VITALS: BP 144/98; PULSE 78; RESP 16
== END 2023-07-16 20:27 | disposition home or self-care (01) ==
PROVIDERS: Emergency Provider Student in an Organized Health Care Education/Training Program; PCP Family Medicine
DX: S52.92XA Unspecified fracture of left forearm, initial encounter for closed fracture (principal); V19.3XXA Pedal cyclist (driver) (passenger) injured in unspecified nontraffic accident, initial encounter
CPT/HCPCS: 29125; 73110; 99283

== ENCOUNTER 2023-09-18 14:00 | Outpatient (RCR) | payer MEDICARE, BC, SELFPAY ==
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
== END 2024-01-16 23:59 | disposition home or self-care (01) ==
PROVIDERS: PCP Family Medicine; Visit Provider Physician Assistant Surgical
DX: M25.532 Pain in left wrist (principal); S52.501A Unspecified fracture of the lower end of right radius, initial encounter for closed fracture; M25.632 Stiffness of left wrist, not elsewhere classified; Z51.89 Encounter for other specified aftercare
CPT/HCPCS: 97110; 97140; 97165; 97535; X5282

== ENCOUNTER 2024-09-23 08:41 | Outpatient (CLI) | payer MEDICARE, SELFPAY ==
--- OUTSIDE RECORDS SUMMARY | 2024-09-23 14:16 | XMS_ITS | Referral Summary ---
Author Organization [facility] Address [address] [place] [address] Care Team Providers Care Leach Runner Name Role Phone Unavailable Primary Care Provider Unavailabl e Source Comments Patient records contain information from all sites at [facility]. For routine questions regarding patient records, call [phone] during business hours, M-F 8:00 AM - 5:00 PM Central Time. Record requests for emergency care only can be directed to [phone] at any time.[facility] Medications metoprolol succinate (TOPROL-XL) 25 mg 24 hr tablet Take 12.5 mg by mouth daily. Do not crush or chew. 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
--- OUTSIDE RECORDS SUMMARY | 2024-09-23 14:16 | XMS_ITS | Clinical Summary ---
Author Organization [facility] Address [address] [place] [address] Care Team Providers Care Office Specialist Name Role Phone Unavailable Primary Care Provider Unavailabl e Source Comments Patient records contain information from all sites at [facility]. For routine questions regarding patient records, call [phone] during business hours, M-F 8:00 AM - 5:00 PM Central Time. Record requests for emergency care only can be directed to [phone] at any time.[facility] Medications metoprolol succinate (TOPROL-XL) 25 mg 24 hr tablet Take 12.5 mg by mouth daily. Do not crush or chew. 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 Gender Identity Not on file Sexual Orientation Not on file Plan of Treatment Health Maintenance Due Date Last Done Comments CT Colonography 1950 Cologuard 1950 Colonoscopy 1950 Colorectal Cancer Screening 1950 FIT 1950 Fasting Glucose for Diabetes Screening 1950 Hepatitis C Screening 1950 Depression Screening (Annual PHQ-2) 10/30/2023 Fall Risk Screen (Annual) 10/30/2023 COVID-19 Vaccine ( season) 2024 07/28/2023, 08/22/2022, 03/15/2022, Additional history exists Influenza Vaccine (#1) 2024 , 08/08/2022, 10/08/2021, Additional history exists DTaP,Tdap,and Td Vaccines (3 - Td or Tdap) 06/24/2031 06/24/2021, 02/08/2011, 11/24/2003 Pneumococcal vaccine (65+ years) Completed 09/12/2016, 08/13/2015 Zoster Vaccines Completed 11/04/2021, 04/2021, 09/12/2016 IPV Vaccines Aged Out No longer eligi ble based on patient's age to complete this topic Insurance [facility]
--- OUTSIDE RECORDS SUMMARY | 2024-09-23 14:16 | XMS_ITS ---
Author Organization [facility] Address [address] [place] [address] Care Team Providers Care Negative Spotter Name Role Phone Unavailable Unavailable Unavailable Surgery Details Not on file Complications Check Surgery Details section. Procedure Estimated Blood Loss Check Surgery Details section. Procedure Findings Check Surgery Details section. Procedure Specimens Taken Check Surgery Details section.
--- OUTSIDE RECORDS SUMMARY | 2024-09-23 14:17 | XMS_ITS | Continuity of Care Document ---
Author Organization [facility] Address [address] [place] [address] Phone Care Team Providers Care Logistics Associate Name Role Phone Yakov Felipe Unavailable Unavailable Allergies, Adverse Reactions, Alerts Substance Reaction Status Criticality No Known Allergies Active No Inform ation Medications Medication Instructions Dosage Effective Dates (start - stop) Status Comments METOPROLOL SUCCINATE (unknown strength) Not Available - Active Procedures Procedure Date Office/Outpatient Visit,Venkatesh [facility] 2020 Advance Directives Directive Yes / No Effective Date File Name No Information Encounters Encounter Description Practice Location Reason(s) For Visit Diagnoses Date Provider Providers Copied on Encounter [facility], [address], [place], [place], [id number], [place] tel:[phone] [facility] [place] No Information Jm Nagy. [facility], [address] [facility] [address], [place], [place], [id number] , [place]. tel:[phone] Office/Outpat ient Visit,[facility], [address], [place], [place], [id number], [place] tel:[phone] [facility] Other spondylosis, lumbar region Jm Nagy. [facility], [address], [place], [place], [id number] , [place]. tel:[phone] Referring Provider: Yakov Hu, [facility] [address], [address]. tel:[phone] Family History Family Member Type Diagnosis Age At Onset No Information Payers Payer name Insurance type Covered [id number] Medicare Kunal ISBELL [id number] 1 Social History Type Description Quantity Date [...]
--- OUTSIDE RECORDS SUMMARY | 2024-09-23 14:17 | XMS_ITS | Continuity of Care Document ---
Author Organization [facility] Address [address] [place] [address] Care Team Providers Care Hospitality Associate Name Role Phone Reji Greer CRNA Unavailable Unavailable Procedures Procedure Date ANESTH, HEAD/NECK/PTRUNK Percutaneous Image guided neuromodulatio n or intra Advance Directives Directive Yes / No Effective Date File Name No Information Encounters Encounter Description Practice Location Reason(s) For Visit Diagnoses Date Provider Providers Copied on Encounter [facility], [address] [place], [place], [id number], [facility] No Information 2 Percy Mendoza. [address] [place], [place], [id number] , . tel:[phone] Referring Provider: Herbierto Campos [facility] [address], [place], [address]. tel:[phone] [facility], [address] [place], [place], [id number], [facility] No Information 2 Andrew Fried. [address] [facility], [place], [place], [id number] , . [phone] Referring Provider: Heriberto Campos [facility] [address], [place], [address]. tel:[phone] Family History Family Member Type Diagnosis Age At Onset No Information Payers Payer name Insurance type Covered democrat ID Authorflorecita wing(s) Medicare MB [id number] Social History Type Description Quantity Date Captured [...]
--- OUTSIDE RECORDS SUMMARY | 2024-09-23 14:18 | XMS_ITS | Clinical Summary ---
Author Organization [facility] Address [place], [place] [address] Care Team Providers Care Systems Consultant Name Role Phone Pcp, No Primary Care Provider Unavailabl e Allergies No known active allergies Medications Medication Sig Dispensed Refills Start Date End Date Status multivitamin (MVI) tabletIndications:Nee d for Tdap vaccination Take 1 tab by mouth once daily. 30 tablet 0 02/08/2011 Active glucosamine-chondroit in, 500-400 mg, (COSAMIN DS 500/400) 500-400 mg CapIndications:Need for Tdap vaccination Take 1 tab by mouth twice daily. 60 capsule 0 02/08/2011 Active simvastatin (ZOCOR) 20 mg tablet 20 mg. 09/26/2016 Active metoprolol succinate (TOPROL XL) 25 mg Sustained-Release tablet Take 0.5 tablets by mouth once daily. 0 05/30/2018 Active buPROPion (WELLBUTRIN XL) 150 mg Extended-Release tablet Take 150 mg by mouth once daily. 3 04/08/2018 Active Immunizations Name Administration Dates Next Due Influenza, IIV3 (Age >=3 years) 10/04/2007 Td (Age >=7 Years) 11/24/2003 Tdap 02/08/2011 Family History Medical History Relation Name Comments Heart Disease Father Quadruple by-p ass, age 86 Other Father smoke Heart Disease Mother [place], , 84 Relation Name Status Comments Father Mother Social History Tobacco Use Types Packs/Day Years Used Date Smoking Tobacco: Former Cigarettes Q uit: 10/30/1982 Smokeless Tobacco: Former Tobacco Cessation:Counseling Given: Yes Alcohol Use Standard Drinks/Week Comments Yes 0 (1 standard drink = 0.6 oz pure alcohol) occassional; couple drinks per week. 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 Respiratory Rate 18 02/08/2011 1:06 PM CDT Oxygen Saturation 97% 05/30/2018 8:34 AM CDT Inhaled Oxygen Concentration - - Weight 79.4 kg (175 lb) 05/30/2018 8:34 AM CDT Height - - Body Mass Index - - Plan of Treatment Health Maintenance Due Date Last Done Comments Depression screening for age 12+ 1962 BMI (ht and wt on same day) for age 18+ 1968 Hepatitis C screening for age 18-79 1968 Colonoscopy through age 75 1995 Lipids for age 45-75 1995 Zoster (shingles) series for age 50+ (1 of 2) 2000 Pneumococcal series for age 65+ (1 of 1 - PCV) 2015 Tetanus booster 02/08/2021 02/08/2011, 11/24/2003 COVID-19 vaccine series ( - 2023- season) 2024 Influenza for age 65+ 06/30/2024 10/04/2007 Tdap Completed 02/08/2011 Care Teams Systems Consultant Relationship Specialty Start Date End Date Pcp, No . PCP - General 11/27/13
--- OUTSIDE RECORDS SUMMARY | 2024-09-23 14:18 | XMS_ITS | Continuity of Care Document ---
Author Organization [facility] Address [address] [facility] [place] [address] Phone Care Team Providers Care Icer Machine Name Role Phone Amador Paige Unavailable Unavailable [...] Diagnoses Date Provider Providers Copied on Encounter [facility], [address] [place] [address], [id number] , [place] tel:[phone] [facility] [place] No Information 3 Ama English. [address] [facility] [address], [place], [id number] , [place]. tel:[phone] [facility], [address] [place] [address], [id number] , [place] tel:[phone] [facility] [place] Radiculopathy, lumbar region 3 Jose Duke. [address] [place], [place], [id number] , [place]. tel:[phone] Referring Provider: Amador Serrato, [address], [place], [address] . tel:[phone] OFFICE/OUTPAT IENT VISIT, EST [facility], [address] [place], [place], [id number] , [place] tel:[phone] [facility] [place] Back Pain (chief complaint) Chronic pain syndromeSpondylosi s without myelopathy or radiculopathy, lumbar regionOther intervertebral disc degeneration, lumbar regionRadiculopath y, lumbar regionMyalgia, other siteOther computer terminal operator (current) drug therapy 2 Ama English. [address] [place] [address] [address], [facility] [place], [id number] , [place]. tel: [phone] Referring Provider: Duke Chou, [address] [place], [place] [address], [address] . tel:[phone] [facility], [address] [place] [address], [id number] , [place] tel: [phone] [facility] lumbago (chief complaint) Spondylosis without myelopathy or radiculopathy, lumbar regionRadiculopath y, lumbar region [facility]- 2 Lakshmi Gardiner Richard. [address] [place], [place] [address], [place], [id number] , [place]. tel: [phone] Referring Provider: Amador Serrato, [address] [place] [address] [address], [place], [address] . tel:[phone] OFFICE VISIT, [facility] TELEMEDICINE [facility], [address] [place] [address], [id number] , [place] tel: [phone] [facility] Back Pain (chief complaint) Other intervertebral disc degeneration, lumbar regionChronic pain syndromeSpondylosi s without myelopathy or radiculopathy, lumbar regionMyalgia, other siteOther computer terminal operator (current) drug therapyRadiculopat hy, lumbar region Dec-2 2 Ama English. [address] [place] [address] [address], [place], [place], [id number] , [place]. tel: [phone] Referring Provider: Duke Chou, [address] [place], [place] [address], [place], [address] . tel:[phone] [facility], [address] [place] [address], [id number] , [place] tel: [phone] [facility] Radiculopathy, lumbar region Dec- 2 Ama English. [address] [place] [address] [address], [place], [place], [id number] , [place]. tel: [phone] Referring Provider: Amador Serrato, [address] [place] [address] [address], [place], [address] . tel:[phone] [facility], [address] [place], [place], [id number] , [place] tel: [phone] [facility] Radiculopathy, lumbar region Dec-0 2 Campos Heriberto. [facility], [address], [place], [address], [place]. tel: [phone] Referring Provider: Amador Serrato, [address] [place] [address] [address], [place], [address] . tel:[phone] OFFICE VISIT, EST TELEMEDICINE [facility], [address] [place] [address], [id number] , [place] tel: [phone] [facility] [place] Radiculopathy, lumbar region 2 Ama English. [address] [place] [address] [address], [place], [place], [id number] , [place]. tel: [phone] [facility], [address] [place] [address], [id number] , [place] tel: [phone] [facility] [place] No Information 2 Ama English. [address] [place] [address] [address], [place], [place], [id number] , [place]. tel: [phone] Referring Provider: Amador Serrato, [address] [place] [address] [address], [place], [address] . tel:[phone] [facility], [address] [place] [address], [id number] , [place] tel: [phone] [facility] [place] Radiculopathy, lumbar regionOther intervertebral disc degeneration, lumbar region 2 Ama English. [address] [place] [address] [address], [place], [place], [id number] , [place]. tel: [phone] Referring Provider: Amador Serrato, [address] [place] [address] [address], [place], [address] . tel:[phone] [facility], [address] [place], [place], [id number] , [place] tel: [phone] [facility] Radiculopathy, lumbar region 2 Beth Louis. [facility], [address], [place], [address], [place]. tel: [phone] Referring Provider: Amador Serrato, [address] [place] [address] [address], [place], [address] . tel:[phone] Psych Dx Eval [facility], [address] [place] [address], [id number] , [place] tel: [phone] Telehealth Pain disorder with related psychological factors 2 Deborah Nj. [address] [place] [address], [id number] , [place]. tel: [phone] Referring Provider: Duke Chou, [address] [place] [address], [address] . tel:[phone] OFFICE/OUTPAT IENT VISIT, [facility], [address] [place] [address], [id number] , [place] tel: [phone] [facility] Back Pain (chief complaint) Chronic pain syndromeRadiculopa thy, lumbar regionMyalgia, other siteOther custodial (current) drug therapySpondylosis without myelopathy or radiculopathy, lumbar regionOther intervertebral disc degeneration, lumbar region 2 Ama English. [address] [place] [address] [address], [place], [place], [id number] , [place]. tel: [phone] Referring Provider: Amador Serrato, [address] [place] [address] [address], [place], [address] . tel:[phone] OFFICE/OUTPAT IENT VISIT, [facility], [address] [place] [address], [id number] , [place] tel: [phone] [facility] Back Pain (chief complaint) Chronic pain syndromeRadiculopa thy, lumbar regionMyalgia, other siteOther custodial (current) drug therapy 1 Ama English. [address], [place], [place], [id number] , [place]. tel:[phone] Referring Provider: Amador Serrato, [address] [place] [address] [address], [place], [address] . tel:[phone] [facility], [address] [place], [place], [id number] , [place] tel:[phone] [facility] Radiculopathy, lumbar region 1 Camposjosselyn Louis. [facility], [address], [place], [address], [place]. tel: [phone] Referring Provider: Amador Serrato, [address] [place] [address] [address], [place], [address] . tel:[phone] OFFICE/OUTPAT IENT VISIT, [facility], [address] [place], [place], [id number] , [place] tel:[phone] [facility] Back Pain (chief complaint) Chronic pain syndromeRadiculopa thy, lumbar regionMyalgia, other siteEncounter for screening for other disorder 1 Ama English. [address] [place] [address] [address], [place], [place], [id number] , [place]. tel:[phone] Referring Provider: Duke Chou, [address] [facility] [place], [address] . tel:[phone] Family History Family Member Type Diagnosis Age At Onset Problem Family history of chronic ba ck pain Payers Payer name Insurance type Covered constitution party ID Almas wing(s) Medicare MB [id number] Social History Type Description Quantity Date Captured Comments Alcohol Use Details Unknown Caffeine Use Details Unknown Tobacco Use Status No Information Smoking Status No Information Sex Male Chief Complaint And Reason For Visit No Information Reason For Referral Reason For Referral No Information Plan Of Treatment Date Type Action Status Goal Zoster vaccine ( 1st). Due on due Goal Height. Due on d ue Goal FIT. Due on due Goal Update Social Hi story. Due on due Goal Lipid panel. Due on due Goal Tobacco Use. Due [...] Medication Recon ciliation. Due on due Goal Unhealthy drug u se screening. Due on due Goal FIT. Due on due Goal Update Social Hi story. Due on due Goal Review Allergy L ist. Due on due Goal CT-Colonography. Due on due Goal FIT-DNA. Due on due Goal Lipid panel. Due on due Goal Hepatitis C scre ening. Due on due Goal Tobacco Use. Due on 023 due Goal Weight. Due on d ue Goal Zoster vaccine ( ). Due on due Goal CT-Colonography. Due on due Goal Height. Due on d ue Goal Zoster vaccine ( ). Due on due Goal Lipid panel. Due on due Goal Medication Recon ciliation. Due on due Goal FIT-DNA. Due on due Goal PHQ-9. Due on du e Goal Unhealthy drug u se screening. Due on due Goal Tobacco Use. Due on due Goal FIT. Due on due Goal Update Social Hi story. Due on due Goal Weight. Due on d ue Goal Hepatitis C scre ening. Due on due Goal Review Allergy L ist. Due on due Goal Review Allergy L ist. Due on due Goal PHQ-9. Due on du e Goal Height. Due on d ue Goal Tobacco Use. Due on due Goal Update Social Hi story. Due on due Goal Weight. Due on d ue Goal Medication Recon ciliation. Due on due Goal CT-Colonography. Due on due Goal FIT. Due on due Goal FIT-DNA. Due on due Goal Hepatitis C scre ening. Due on due Goal Lipid panel. Due on due Goal Unhealthy drug u se screening. Due on due Goal Zoster vaccine ( ). Due on due Goal Height. Due on [...] du e Goal Tobacco Use. Due on 022 due Goal Medication Recon ciliation. 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 He previously followed at [facility] for imaging and work-up. States pain occurs [...] interested in pain management options offered through [facility]. Specifically discussed ESIs and medication management. [...]
--- OUTSIDE RECORDS SUMMARY | 2024-09-23 14:18 | XMS_ITS | Continuity of Care Document ---
Author Organization [facility] enter Address [address] [place] [address] [address] Phone Care Team Providers Care Paint Spraying Machine Operator Helper Name Role Phone [facility] Unavailable Unava ilable Procedures Procedure Date IMPLANT [...] Date Provider Providers Copied on Encounter [facility], [address] [place] [address], [id number], [place] tel:[phone] [facility] No Information [facility]. [address] [place] [address], [id number], [place]. tel:[phone] Referring Provider: Heriberto Campos [employer] [address] [facility] [address], [place], [address]. tel:[phone] [facility], [address] [place] [address], [id number], tel:[phone] [place] [address] No Information [facility]. [address] [place] [address], [id number], . tel:[phone] Referring Provider: Heriberto Campos [employer] [address] [facility] [address], [place], [address]. tel:[phone] [facility], [address] [place] [address], [id number], tel:[phone] [place] [address] No Information [facility]. [address] [place] [address], [id number], . tel:[phone] Referring Provider: Heriberto Campos [employer] [address] [facility] [address], [place], [address]. tel:[phone] Family History Family Member Type Diagnosis Age At Onset No Information Payers Payer name Insurance type Covered green party ID Authorflorecita wing(s) Medicare MB [id number] Social History Type Description Quantity Date Captured [...]
== END 2024-09-23 08:42 | disposition home or self-care (01) ==
LOC: NFLDREF 14:15
PROVIDERS: PCP Family Medicine; Referring Provider Family Medicine; Visit Provider Family Medicine
DX: E78.5 Hyperlipidemia, unspecified (principal)
CPT/HCPCS: 80053; 80061

== ENCOUNTER 2025-05-01 05:40 | Outpatient (CLI) | payer MEDICARE, SELFPAY | END 2025-05-01 05:41 | disposition home or self-care (01) | PROVIDERS: PCP Family Medicine; Visit Provider Family Medicine | DX: R07.89 Other chest pain (principal) | CPT/HCPCS: A0425; A0427 ==

== ENCOUNTER 2025-05-01 06:02 | Emergency (ER) | payer MEDICARE, SELFPAY ==
[2025-05-01] VITALS (94 sets, daily range): BP systolic 120–180; BP diastolic 61–109; PULSE 65–85; RESP 0–60; TEMP 36.1; O2SAT 92–100; BMI 26.6
--- OUTSIDE RECORDS SUMMARY | 2025-05-01 06:04 | XMS_ITS | Clinical Summary ---
Author Organization [facility] Address [address] [place] [address] Care Team Providers Care Roughener Name Role Phone Unavailable Primary Care Provider Unavailabl e Source Comments Patient records contain information from all sites at [facility]. For routine questions regarding patient records, call [phone] during business hours, M-F 8:00 AM - 5:00 PM Central Time. Record requests for emergency care only can be directed to [phone] at any time.[facility] Medications metoprolol succinate (TOPROL-XL) 25 mg 24 hr tablet Take 12.5 mg by mouth daily. Do not crush or chew. 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 Gender Identity Not on file Sexual Orientation Not on file Plan of Treatment Health Maintenance Due Date Last Done Comments CT Colonography 1950 Cologuard 1950 Colonoscopy 1950 Colorectal Cancer Screening 1950 FIT 1950 Fasting Glucose for Diabetes Screening 1950 Hepatitis C Screening 1950 COVID-19 Vaccine ( season) 2024 07/28/2023, 08/22/2022, 03/15/2022, Additional history exists Depression Screening (Annual PHQ-2) 10/30/2024 Fall Risk Screen (Annual) 10/30/2024 Influenza Vaccine (#1) 2025 , 08/08/2022, 10/08/2021, Additional history exists DTaP,Tdap,and Td Vaccines (3 - Td or Tdap) 06/24/2031 06/24/2021, 02/08/2011, 11/24/2003 Pneumococcal vaccine (50+ years) Completed 09/12/2016, 08/13/2015 Zoster Vaccines Completed 11/04/2021, 04/2021, 09/12/2016 IPV Vaccines Aged Out No longer eligi ble based on patient's age to complete this topic Insurance [facility]
--- OUTSIDE RECORDS SUMMARY | 2025-05-01 06:04 | XMS_ITS | Clinical Summary ---
Author Organization [facility] Address [address] [place] [address] Care Team Providers Care City Collector Name Role Phone Yakov Morse MD Primary Care Provider [phone] Allergies No known active allergies Medications multivitamin (MVI) tabletIndication s:Need for Tdap vaccination Take 1 tab by mouth once daily. 30 tablet 0 02/08/2011 Active glucosamine-jeanette droitin, 500-400 mg, (COSAMIN DS 500/400) 500-400 mg CapIndications:N eed for Tdap vaccination Take 1 tab by mouth twice daily. 60 capsule 0 02/08/2011 Active simvastatin (ZOCOR) 20 mg tablet 20 mg. 09/26/2016 Active metoprolol succinate (TOPROL XL) 25 mg Sustained-Releas e tablet Take 0.5 tablets by mouth once daily. 0 05/30/2018 Active buPROPion (WELLBUTRIN XL) 150 mg Extended-Release tablet Take 150 mg by mouth once daily. 3 04/08/2018 Active Encounters Date Type Department Care Team Description 04/25/2025 11:00 AM CDT Office Visit [facility] [address] [place] [id number] Conrado Reyes MD Teleheart, [place] Follow Up (Atrial fibrillation /Chronic cough ) 04/25/2025 Travel 04/25/2025 Telephone [facility] Centralized Nurse Triage Pcp, No need cardiology appt from Last 3 Months Immunizations Immunization Administration Dates Next Due INFLUENZA, IIV3 PF (AGE >= 6 MO) 09/24/2024,10/31 Influenza A (H1N1), Inactivated 10/29/2009 Influenza, High-dose Inactivated 08/27/2019,10/30 Influenza, High-dose Quadriv alent Inactivated 07/28/2023,10/08/2021 Influenza, IIV3 (Age >=3 years) 09/30/20 10,10/04/2007,09/15/2006,2004,08/28/2003 Influenza, IIV4 08/14/2013 Influenza, IIV4 (=>6mos) MDV 07/19/2017 Influenza, Inactivated AIIV4 (Age 65+ Years) Preserv Free 08/08/2022,08/18/2020 Pneumococcal Poly,23-Valent (Pneumovax) 08/13/2015 Pneumococcal conj 13-Valent (Prevnar 13) 09/12/2016 Td (Age >=7 Years) 11/24/2003 Tdap 06/24/2021,02/08/2011 Zoster (Shingrix-RZV, recombinant) 11/04/2021, Zoster (Zostavax-ZVL, live) 09/12/2016 Family History Medical History Relation Name Comments Heart Disease Father Quadruple by-p ass, age 86 Other Father smoke Heart Disease Mother [place], , 84 Relation Name Status Comments Father [...] at Not on file Legal Sex Male 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 Gender Identity Not on file Sexual Orientation Not on file 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 Not on file Not on file Obstetrics History Last Filed Vital Signs Vital Sign Reading Time Taken Comments Blood Pressure 156/98 04/25/2025 10:46 AM CDT Pulse 53 04/25/2025 10:46 AM CDT Temperature 36.7 C (98.1 F) 10/19/2016 1:18 PM FLOORS BUFFER Respiratory Rate 18 02/08/2011 1:06 PM CDT Oxygen Saturation 98% 04/25/2025 10:46 AM CDT Inhaled Oxygen Concentration - - Weight 83.3 kg (183 lb 9.6 oz) 04/25/2025 10:46 AM CDT Height - - Body Mass Index - - Plan of Treatment Upcoming Encounters Date Type Department Care Team (Late st Contact Info) Description 05/29/2025 9:00 AM CDT Ancillary Procedure [facility] [address] [place] [address] Health Maintenance Due Date Last Done Comments Depression screening for age 12+ 1962 BMI (ht and wt on same day) for age 18+ 1968 Hepatitis C screening for age 18-79 1968 Colonoscopy through age 75 1995 Lipids for age 45-75 1995 AAA screening age 65-74 2015 Medicare Wellness for age 65+ 2015 COVID-19 vaccine series ( season) 2025 09/24/2024, 07/28/2023, 08/22/2022, Additional history exists RSV vaccine for adults or (1 - 1-dose 75+ series) 2025 Influenza Vaccine (#1) 2025 , 08/08/2022, 08/18/2020, Additional history exists Tetanus booster 06/24/2031 06/24/2021, 01/28, 11/24/2003 Pneumococcal series for age 50+ Completed 09/12/2016, 08/13/2015 Zoster (shingles) series for age 50+ Completed 11/04/2021, 08/05/2021, 09/12/2016 Hepatitis B series for 19+ Aged Out N o longer eligible based on patient's age to complete this topic Procedures Procedure Name Priority Date/Time Associated Diagnosis Comments EKG 12 LEAD Routine 04/28/2025 4:31 PM CDT Routine general medical examination at a health care facility History of atrial fibrillation from Last 3 Months Results * EKG 12 LEAD (04/28/2025 4:31 PM CDT) us Conrado Reyes MD EKG ORD Final Result from Last 3 Months Insurance [facility] [employer] Care Teams City Collector Relationship Specialty Start Date End Date Yakov Morse MD [address] [place] [address] PCP - General Family Practice 04/25/25
--- NOTE | 2025-05-01 06:10 | CRLHL7_ITS ---
For Patients: As a result of the Century Cures Act, medical imaging exams and procedure reports are released immediately into your electronic medical record. You may view this report before your referring provider. If you have questions, please contact your health care provider. INDICATION: Chest pain, not otherwise described. COMPARISON: 03/12/2019, 06/01/2013. TECHNIQUE: Single AP view of the chest. FINDINGS: Medical Devices: New. Spinal stimulator leads overlying the midline of the lower thoracic spine. Lung Volumes: Adequate inspiration. No significant atelectasis. Lungs: Possible (equivocal) cephalization of the pulmonary vascular markings suggesting pulmonary venous congestion. Recommend clinical correlation as to possible congestive heart failure. Lungs are otherwise clear. Pleura and Pleural spaces: No significant pleural effusion. No pneumothorax. Mediastinum: Normal cardiomediastinal silhouette. Bony Thorax and Soft Tissues: No significant incidental findings. IMPRESSION: Possible (equivocal) cephalization of the pulmonary vascular markings suggesting pulmonary venous congestion. Recommend clinical correlation as to possible congestive heart failure. No other findings relevant to the history of chest pain, not otherwise specified. Dictated by Rah Leonard MD @ 05/01/2025 6:34:42 AM (Electronically Signed)
--- NOTE | 2025-05-01 06:16 | ED_ITS ---
HPI - Chest Pain General Chief Complaint: Chest Pain <Patrcia Rodriguez MD - Last Filed: 05/02/25 00:00> Stated Complaint: a fib <Patrica Rodriguez MD - Last Filed: 05/02/25 00:00> Time Seen by Provider: 05/01/25 06:10 <Patrica Rodriguez MD - Last Filed: 05/02/25 00:00> Source: patient and EMS <Patrica Rodriguez MD - Last Filed: 05/02/25 00:00> Mode of arrival: EMS <Patrica Rodriguez MD - Last Filed: 05/02/25 00:00> Limitations: no limitations <Patrica Rodriguez MD - Last Filed: 05/02/25 00:00> History of Present Illness HPI narrative: 74-year-old male with no history of coronary artery disease or heart failure presents to the emergency department by EMS. He reports he woke around fire [id number] this morning to sudden onset of chest pain, rating it 9/10. Noted to be hypertensive within a regular heart rhythm per EMS. They pre she did some subtle ST depression in V4 5 and 6 on their monitor. He was given 2 nitroglycerin and 100 mcg of fentanyl and the pain reduced from 9 to 4/10 currently. No shortness of breath. No history of DVT or PE. Exercises regularly, bike 21 miles yesterday with no exertional type symptoms. No prior history of similar symptoms. Reports history of abnormal heart rhythm, he thinks this was AFib. He is not anticoagulated. Review of the chart shows that he has a diagnosis is supraventricular tachycardia which would make more sense. No history of angiogram. Very remote stress test, none recent. No recent f ever, acute illness excessive alcohol or trauma. Denies any other symptoms times 12 systems. Past medical history notable for thumb musculoskeletal illness. His only home medication is metoprolol which I believe he takes for SVT. No anticoagulation. Nonsmoker. Was 50 lb heavier earlier in life but has lost weight over the last couple of decades due to exercise. No prior history of similar symptoms. <Patrica Rodriguez MD - Last Filed: 05/02/25 00:00> Related Data Home Medications: Home Medications ?Medication ?Instructions ?Recorded ?Confirmed acetaminophen 500 mg oral powder 500 mg PO Q6H PRN 10/20/24 packet (Tylenol Extra Strength) ibuprofen 200 mg capsule 200 mg PO Q6H PRN 07/21/23 1 12/21/23 Previous Rx's ?Medication ?Instructions ?Recorded metoprolol succinate 25 mg 12.5 mg (1/2 x 25 mg) PO QD AY #45 09/24/24 tablet,extended release 24 hr tabs olopatadine 0.2 % eye drops 1 drp ophthalmic (eye) QDA Y #2.5 mL 09/24/24 (Pataday Once Daily Relief) <Patrica Rodriguez MD - Last Filed: 05/02/25 00:00> Allergies/Adverse Reactions: Allergies Allergy/AdvReac Type Severity Reaction Status Date / Time No Known Drug Allergies Allergy Verified 05/01/25 12:11 <Patrica Rodriguez MD - Last Filed: 05/02/25 00:00> [facility] Medical History: Medical History Depression ?F32.A - Depression, unspecified (ICD-10) History of kidney stones ?Z87.442 - Personal history of urinary calculi (ICD-10) <Patrcia Rodriguez MD - Last Filed: 05/02/25 00:00> Social History: Social History What is your current living situation?: I presently have a place to live Problems where you live: no known problems In the past 12 months, utilities in danger of being shut off: no In past 12 months, lack of transportation kept you from medical appts, meetings, work, or getting things needed for daily living: no In the past 12 mos, have been you worried that your food would run out before you had money to buy more?: never true In the past 12 mos, the food you bought just didn't last and you didn't have money to buy more?: never true Smoking Status: Former smoker What tobacco products do you use: cigarettes Years smoked: 12 Smoking quit date/years: >15 years ago Do you use any of these nicotine containing products: None Second hand tobacco smoke exposure: No How often do you have a drink containing alcohol: monthly or less How many standard drinks containing alcohol do you have on a typical day: 1 or 2 How often do you have six or more drinks on one occasion: Never AUDIT-C Alcohol total score: 1 Non-prescribed substance use: denies use How often does anyone, including family, friends and others, physically hurt you : never How often does anyone, including family, friends and others, insult or talk down to you: rarely How often does anyone, including family, friends and others, threaten you with harm: never How often does anyone, including family, friends and others, scream or curse at you: rarely Health Related Social Needs: Other personal risk factors, not elsewhere classified (Z91.89) <Patrica Rodriguez MD - Last Filed: 05/02/25 00:00> Exam Const Vital Signs, click to edit/add: Vital Signs - 24 hr 05/01/25 06:09 05/01/25 06:14 05/01/25 06:15 Temperature 97 F L Pulse Rate 82 77 Pulse Rate [Pulse Oximeter] 75 Respiratory Rate 16 20 17 Blood Pressure Blood Pressure [Right Upper Arm] 179/93 H Pulse Oximetry 94 94 94 Oxygen Delivery Method Room Air 05/01/25 06:16 05/01/25 06:22 05/01/25 06:30 Temperature Pulse Rate 79 75 75 Pulse Rate [Pulse Oximeter] Respiratory Rate 18 18 20 Blood Pressure 169/99 H 153/87 H Blood Pressure [Right Upper Arm] Pulse Oximetry 94 93 94 Oxygen Delivery Method 05/01/25 06:32 05/01/25 06:33 05/01/25 06:41 Temperature Pulse Rate 74 75 74 Pulse Rate [Pulse Oximeter] Respiratory Rate 20 40 H 12 Blood Pressure 136/82 135/88 Blood Pressure [Right Upper Arm] Pulse Oximetry 94 93 93 Oxygen Delivery Method 05/01/25 06:45 05/01/25 06:51 05/01/25 07:00 Temperature Pulse Rate 69 71 71 Pulse Rate [Pulse Oximeter] Respiratory Rate 18 18 21 Blood Pressure 140/79 H Blood Pressure [Right Upper Arm] Pulse Oximetry 93 94 92 Oxygen Delivery Method 05/01/25 07:01 05/01/25 07:11 05/01/25 07:15 Temperature Pulse Rate 71 71 72 Pulse Rate [Pulse Oximeter] Respiratory Rate 18 16 16 Blood Pressure 128/79 123/71 Blood Pressure [Right Upper Arm] Pulse Oximetry 92 93 92 Oxygen Delivery Method 05/01/25 07:21 05/01/25 07:30 05/01/25 07:32 Temperature Pulse Rate 70 67 70 Pulse Rate [Pulse Oximeter] Respiratory Rate 16 0 L 9 L Blood Pressure 126/74 136/75 Blood Pressure [Right Upper Arm] Pulse Oximetry 94 95 93 Oxygen Delivery Method 05/01/25 07:41 05/01/25 07:42 05/01/25 07:45 Temperature Pulse Rate 69 67 69 Pulse Rate [Pulse Oximeter] Respiratory Rate 0 L 35 H 14 Blood Pressure 140/75 H Blood Pressure [Right Upper Arm] Pulse Oximetry 94 94 96 Oxygen Delivery Method 05/01/25 07:51 05/01/25 08:00 05/01/25 08:01 Temperature Pulse Rate 71 70 69 Pulse Rate [Pulse Oximeter] Respiratory Rate 10 L 10 L 11 L Blood Pressure 145/77 H 147/104 H Blood Pressure [Right Upper Arm] Pulse Oximetry 95 96 98 Oxygen Delivery Method 05/01/25 08:11 05/01/25 08:12 05/01/25 08:15 Temperature Pulse Rate 69 Pulse Rate [Pulse Oximeter] Respiratory Rate 20 19 20 Blood Pressure 151/88 H Blood Pressure [Right Upper Arm] Pulse Oximetry 97 Oxygen Delivery Method 05/01/25 08:21 05/01/25 08:30 05/01/25 08:32 Temperature Pulse Rate 73 68 Pulse Rate [Pulse Oximeter] Respiratory Rate 22 11 L 21 Blood Pressure 148/83 H 128/83 Blood Pressure [Right Upper Arm] Pulse Oximetry 95 96 Oxygen Delivery Method 05/01/25 08:33 05/01/25 08:42 05/01/25 08:45 Temperature Pulse Rate 73 71 74 Pulse Rate [Pulse Oximeter] Respiratory Rate 38 H 20 9 L Blood Pressure 159/88 H Blood Pressure [Right Upper Arm] Pulse Oximetry 95 96 97 Oxygen Delivery Method 05/01/25 08:48 05/01/25 08:49 05/01/25 08:52 Temperature Pulse Rate 71 65 Pulse Rate [Pulse Oximeter] Respiratory Rate 12 22 7 L Blood Pressure 155/81 H 139/73 139/74 Blood Pressure [Right Upper Arm] Pulse Oximetry 96 97 Oxygen Delivery Method 05/01/25 09:00 05/01/25 09:01 05/01/25 09:16 Temperature Pulse Rate 71 73 Pulse Rate [Pulse Oximeter] Respiratory Rate 17 17 16 Blood Pressure 125/61 Blood Pressure [Right Upper Arm] Pulse Oximetry 95 95 Oxygen Delivery Method 05/01/25 09:23 05/01/25 09:30 05/01/25 09:32 Temperature Pulse Rate Pulse Rate [Pulse Oximeter] Respiratory Rate 7 L 19 19 Blood Pressure 159/83 H 148/84 H Blood Pressure [Right Upper Arm] Pulse Oximetry Oxygen Delivery Method 05/01/25 09:41 05/01/25 09:45 05/01/25 09:51 Temperature Pulse Rate Pulse Rate [Pulse Oximeter] Respiratory Rate 19 15 19 Blood Pressure 150/85 H 147/85 H Blood Pressure [Right Upper Arm] Pulse Oximetry Oxygen Delivery Method 05/01/25 09:52 05/01/25 10:00 05/01/25 10:02 Temperature Pulse Rate Pulse Rate [Pulse Oximeter] Respiratory Rate 19 16 18 Blood Pressure 148/81 H Blood Pressure [Right Upper Arm] Pulse Oximetry Oxygen Delivery Method 05/01/25 10:11 05/01/25 10:15 05/01/25 10:22 Temperature Pulse Rate Pulse Rate [Pulse Oximeter] Respiratory Rate 16 16 36 H Blood Pressure 146/76 H 142/79 H Blood Pressure [Right Upper Arm] Pulse Oximetry Oxygen Delivery Method 05/01/25 10:30 05/01/25 10:31 05/01/25 10:32 Temperature Pulse Rate Pulse Rate [Pulse Oximeter] Respiratory Rate 16 20 21 Blood Pressure 157/82 H Blood Pressure [Right Upper Arm] Pulse Oximetry Oxygen Delivery Method 05/01/25 10:42 05/01/25 10:45 05/01/25 10:51 Temperature Pulse Rate Pulse Rate [Pulse Oximeter] Respiratory Rate 0 L 0 L 0 L Blood Pressure 120/102 H 142/83 H Blood Pressure [Right Upper Arm] Pulse Oximetry Oxygen Delivery Method 05/01/25 11:00 05/01/25 11:01 05/01/25 11:11 Temperature Pulse Rate Pulse Rate [Pulse Oximeter] Respiratory Rate 22 12 23 Blood Pressure 145/72 H 154/86 H Blood Pressure [Right Upper Arm] Pulse Oximetry Oxygen Delivery Method 05/01/25 11:15 05/01/25 11:22 05/01/25 11:23 Temperature Pulse Rate Pulse Rate [Pulse Oximeter] Respiratory Rate 6 L 16 17 Blood Pressure 178/96 H Blood Pressure [Right Upper Arm] Pulse Oximetry Oxygen Delivery Method 05/01/25 11:30 05/01/25 11:31 05/01/25 11:42 Temperature Pulse Rate Pulse Rate [Pulse Oximeter] Respiratory Rate 6 L 28 H 20 Blood Pressure 179/87 H 146/72 H Blood Pressure [Right Upper Arm] Pulse Oximetry Oxygen Delivery Method 05/01/25 11:45 05/01/25 11:52 05/01/25 11:53 Temperature Pulse Rate Pulse Rate [Pulse Oximeter] Respiratory Rate 18 18 13 Blood Pressure 175/97 H Blood Pressure [Right Upper Arm] Pulse Oximetry Oxygen Delivery Method 05/01/25 12:31 05/01/25 12:39 05/01/25 12:40 Temperature Pulse Rate 70 73 69 Pulse Rate [Pulse Oximeter] Respiratory Rate 15 15 60 H Blood Pressure 179/92 H Blood Pressure [Right Upper Arm] Pulse Oximetry 96 96 96 Oxygen Delivery Method 05/01/25 12:42 05/01/25 12:50 05/01/25 12:52 Temperature Pulse Rate 74 85 71 Pulse Rate [Pulse Oximeter] Respiratory Rate 47 H 28 H 10 L Blood Pressure 175/76 H 169/87 H Blood Pressure [Right Upper Arm] Pulse Oximetry 95 93 96 Oxygen Delivery Method 05/01/25 13:00 05/01/25 13:01 05/01/25 13:07 Temperature Pulse Rate 71 79 75 Pulse Rate [Pulse Oximeter] Respiratory Rate Blood Pressure 168/92 H 151/108 H Blood Pressure [Right Upper Arm] Pulse Oximetry 98 97 99 Oxygen Delivery Method 05/01/25 13:10 05/01/25 13:11 05/01/25 13:13 Temperature Pulse Rate 73 79 75 Pulse Rate [Pulse Oximeter] Respiratory Rate 23 22 16 Blood Pressure 164/89 H 167/87 H Blood Pressure [Right Upper Arm] Pulse Oximetry 100 100 99 Oxygen Delivery Method 05/01/25 13:16 05/01/25 13:18 05/01/25 13:20 Temperature Pulse Rate 68 71 71 Pulse Rate [Pulse Oximeter] Respiratory Rate 10 L Blood Pressure 177/106 H 180/108 H Blood Pressure [Right Upper Arm] Pulse Oximetry 99 100 98 Oxygen Delivery Method 05/01/25 13:21 05/01/25 13:22 05/01/25 13:25 Temperature Pulse Rate 72 72 71 Pulse Rate [Pulse Oximeter] Respiratory Rate 33 H 18 Blood Pressure 178/108 H 154/109 H Blood Pressure [Right Upper Arm] Pulse Oximetry 97 98 99 Oxygen Delivery Method 05/01/25 13:26 05/01/25 13:28 05/01/25 13:29 Temperature Pulse Rate 74 72 71 Pulse Rate [Pulse Oximeter] Respiratory Rate 18 12 Blood Pressure 158/92 H 162/98 H 170/94 H Blood Pressure [Right Upper Arm] Pulse Oximetry 99 99 99 Oxygen Delivery Method 05/01/25 13:30 05/01/25 13:31 05/01/25 13:34 Temperature Pulse Rate 70 73 Pulse Rate [Pulse Oximeter] Respiratory Rate 17 Blood Pressure 169/103 H 170/92 H Blood Pressure [Right Upper Arm] Pulse Oximetry 99 99 Oxygen Delivery Method 05/01/25 13:35 Temperature Pulse Rate Pulse Rate [Pulse Oximeter] Respiratory Rate Blood Pressure 163/97 H Blood Pressure [Right Upper Arm] Pulse Oximetry Oxygen Delivery Method <Patrica Rodriguez MD - Last Filed: 05/02/25 00:00> Vital Signs - 24 hr 05/01/25 06:09 05/01/25 06:14 05/01/25 06:15 Temperature 97 F L Pulse Rate 82 77 Pulse Rate [Pulse Oximeter] 75 Respiratory Rate 16 20 17 Blood Pressure Blood Pressure [Right Upper Arm] 179/93 H Pulse Oximetry 94 94 94 Oxygen Delivery Method Room Air 05/01/25 06:16 05/01/25 06:22 05/01/25 06:30 Temperature Pulse Rate 79 75 75 Pulse Rate [Pulse Oximeter] Respiratory Rate 18 18 20 Blood Pressure 169/99 H 153/87 H Blood Pressure [Right Upper Arm] Pulse Oximetry 94 93 94 Oxygen Delivery Method 05/01/25 06:32 05/01/25 06:33 05/01/25 06:41 Temperature Pulse Rate 74 75 74 Pulse Rate [Pulse Oximeter] Respiratory Rate 20 40 H 12 Blood Pressure 136/82 135/88 Blood Pressure [Right Upper Arm] Pulse Oximetry 94 93 93 Oxygen Delivery Method 05/01/25 06:45 05/01/25 06:51 05/01/25 07:00 Temperature Pulse Rate 69 71 71 Pulse Rate [Pulse Oximeter] Respiratory Rate 18 18 21 Blood Pressure 140/79 H Blood Pressure [Right Upper Arm] Pulse Oximetry 93 94 92 Oxygen Delivery Method 05/01/25 07:01 05/01/25 07:11 05/01/25 07:15 Temperature Pulse Rate 71 71 72 Pulse Rate [Pulse Oximeter] Respiratory Rate 18 16 16 Blood Pressure 128/79 123/71 Blood Pressure [Right Upper Arm] Pulse Oximetry 92 93 92 Oxygen Delivery Method 05/01/25 07:21 05/01/25 07:30 05/01/25 07:32 Temperature Pulse Rate 70 67 70 Pulse Rate [Pulse Oximeter] Respiratory Rate 16 0 L 9 L Blood Pressure 126/74 136/75 Blood Pressure [Right Upper Arm] Pulse Oximetry 94 95 93 Oxygen Delivery Method 05/01/25 07:41 05/01/25 07:42 05/01/25 07:45 Temperature Pulse Rate 69 67 69 Pulse Rate [Pulse Oximeter] Respiratory Rate 0 L 35 H 14 Blood Pressure 140/75 H Blood Pressure [Right Upper Arm] Pulse Oximetry 94 94 96 Oxygen Delivery Method 05/01/25 07:51 05/01/25 08:00 05/01/25 08:01 Temperature Pulse Rate 71 70 69 Pulse Rate [Pulse Oximeter] Respiratory Rate 10 L 10 L 11 L Blood Pressure 145/77 H 147/104 H Blood Pressure [Right Upper Arm] Pulse Oximetry 95 96 98 Oxygen Delivery Method 05/01/25 08:11 05/01/25 08:12 05/01/25 08:15 Temperature Pulse Rate 69 Pulse Rate [Pulse Oximeter] Respiratory Rate 20 19 20 Blood Pressure 151/88 H Blood Pressure [Right Upper Arm] Pulse Oximetry 97 Oxygen Delivery Method 05/01/25 08:21 05/01/25 08:30 05/01/25 08:32 Temperature Pulse Rate 73 68 Pulse Rate [Pulse Oximeter] Respiratory Rate 22 11 L 21 Blood Pressure 148/83 H 128/83 Blood Pressure [Right Upper Arm] Pulse Oximetry 95 96 Oxygen Delivery Method 05/01/25 08:33 05/01/25 08:42 05/01/25 08:45 Temperature Pulse Rate 73 71 74 Pulse Rate [Pulse Oximeter] Respiratory Rate 38 H 20 9 L Blood Pressure 159/88 H Blood Pressure [Right Upper Arm] Pulse Oximetry 95 96 97 Oxygen Delivery Method 05/01/25 08:48 05/01/25 08:49 05/01/25 08:52 Temperature Pulse Rate 71 65 Pulse Rate [Pulse Oximeter] Respiratory Rate 12 22 7 L Blood Pressure 155/81 H 139/73 139/74 Blood Pressure [Right Upper Arm] Pulse Oximetry 96 97 Oxygen Delivery Method 05/01/25 09:00 05/01/25 09:01 05/01/25 09:16 Temperature Pulse Rate 71 73 Pulse Rate [Pulse Oximeter] Respiratory Rate 17 17 16 Blood Pressure 125/61 Blood Pressure [Right Upper Arm] Pulse Oximetry 95 95 Oxygen Delivery Method 05/01/25 09:23 05/01/25 09:30 05/01/25 09:32 Temperature Pulse Rate Pulse Rate [Pulse Oximeter] Respiratory Rate 7 L 19 19 Blood Pressure 159/83 H 148/84 H Blood Pressure [Right Upper Arm] Pulse Oximetry Oxygen Delivery Method 05/01/25 09:41 05/01/25 09:45 05/01/25 09:51 Temperature Pulse Rate Pulse Rate [Pulse Oximeter] Respiratory Rate 19 15 19 Blood Pressure 150/85 H 147/85 H Blood Pressure [Right Upper Arm] Pulse Oximetry Oxygen Delivery Method 05/01/25 09:52 05/01/25 10:00 05/01/25 10:02 Temperature Pulse Rate Pulse Rate [Pulse Oximeter] Respiratory Rate 19 16 18 Blood Pressure 148/81 H Blood Pressure [Right Upper Arm] Pulse Oximetry Oxygen Delivery Method 05/01/25 10:11 05/01/25 10:15 05/01/25 10:22 Temperature Pulse Rate Pulse Rate [Pulse Oximeter] Respiratory Rate 16 16 36 H Blood Pressure 146/76 H 142/79 H Blood Pressure [Right Upper Arm] Pulse Oximetry Oxygen Delivery Method 05/01/25 10:30 05/01/25 10:31 05/01/25 10:32 Temperature Pulse Rate Pulse Rate [Pulse Oximeter] Respiratory Rate 16 20 21 Blood Pressure 157/82 H Blood Pressure [Right Upper Arm] Pulse Oximetry Oxygen Delivery Method 05/01/25 10:42 05/01/25 10:45 05/01/25 10:51 Temperature Pulse Rate Pulse Rate [Pulse Oximeter] Respiratory Rate 0 L 0 L 0 L Blood Pressure 120/102 H 142/83 H Blood Pressure [Right Upper Arm] Pulse Oximetry Oxygen Delivery Method 05/01/25 11:00 05/01/25 11:01 05/01/25 11:11 Temperature Pulse Rate Pulse Rate [Pulse Oximeter] Respiratory Rate 22 12 23 Blood Pressure 145/72 H 154/86 H Blood Pressure [Right Upper Arm] Pulse Oximetry Oxygen Delivery Method 05/01/25 11:15 05/01/25 11:22 05/01/25 11:23 Temperature Pulse Rate Pulse Rate [Pulse Oximeter] Respiratory Rate 6 L 16 17 Blood Pressure 178/96 H Blood Pressure [Right Upper Arm] Pulse Oximetry Oxygen Delivery Method 05/01/25 11:30 05/01/25 11:31 05/01/25 11:42 Temperature Pulse Rate Pulse Rate [Pulse Oximeter] Respiratory Rate 6 L 28 H 20 Blood Pressure 179/87 H 146/72 H Blood Pressure [Right Upper Arm] Pulse Oximetry Oxygen Delivery Method 05/01/25 11:45 05/01/25 11:52 05/01/25 11:53 Temperature Pulse Rate Pulse Rate [Pulse Oximeter] Respiratory Rate 18 18 13 Blood Pressure 175/97 H Blood Pressure [Right Upper Arm] Pulse Oximetry Oxygen Delivery Method 05/01/25 12:31 05/01/25 12:39 05/01/25 12:40 Temperature Pulse Rate 70 73 69 Pulse Rate [Pulse Oximeter] Respiratory Rate 15 15 60 H Blood Pressure 179/92 H Blood Pressure [Right Upper Arm] Pulse Oximetry 96 96 96 Oxygen Delivery Method 05/01/25 12:42 05/01/25 12:50 05/01/25 12:52 Temperature Pulse Rate 74 85 71 Pulse Rate [Pulse Oximeter] Respiratory Rate 47 H 28 H 10 L Blood Pressure 175/76 H 169/87 H Blood Pressure [Right Upper Arm] Pulse Oximetry 95 93 96 Oxygen Delivery Method 05/01/25 13:00 05/01/25 13:01 05/01/25 13:07 Temperature Pulse Rate 71 79 75 Pulse Rate [Pulse Oximeter] Respiratory Rate Blood Pressure 168/92 H 151/108 H Blood Pressure [Right Upper Arm] Pulse Oximetry 98 97 99 Oxygen Delivery Method 05/01/25 13:10 05/01/25 13:11 05/01/25 13:13 Temperature Pulse Rate 73 79 75 Pulse Rate [Pulse Oximeter] Respiratory Rate 23 22 16 Blood Pressure 164/89 H 167/87 H Blood Pressure [Right Upper Arm] Pulse Oximetry 100 100 99 Oxygen Delivery Method 05/01/25 13:16 05/01/25 13:18 05/01/25 13:20 Temperature Pulse Rate 68 71 71 Pulse Rate [Pulse Oximeter] Respiratory Rate 10 L Blood Pressure 177/106 H 180/108 H Blood Pressure [Right Upper Arm] Pulse Oximetry 99 100 98 Oxygen Delivery Method 05/01/25 13:21 05/01/25 13:22 05/01/25 13:25 Temperature Pulse Rate 72 72 71 Pulse Rate [Pulse Oximeter] Respiratory Rate 33 H 18 Blood Pressure 178/108 H 154/109 H Blood Pressure [Right Upper Arm] Pulse Oximetry 97 98 99 Oxygen Delivery Method 05/01/25 13:26 05/01/25 13:28 05/01/25 13:29 Temperature Pulse Rate 74 72 71 Pulse Rate [Pulse Oximeter] Respiratory Rate 18 12 Blood Pressure 158/92 H 162/98 H 170/94 H Blood Pressure [Right Upper Arm] Pulse Oximetry 99 99 99 Oxygen Delivery Method 05/01/25 13:30 05/01/25 13:31 05/01/25 13:34 Temperature Pulse Rate 70 73 Pulse Rate [Pulse Oximeter] Respiratory Rate 17 Blood Pressure 169/103 H 170/92 H Blood Pressure [Right Upper Arm] Pulse Oximetry 99 99 Oxygen Delivery Method 05/01/25 13:35 Temperature Pulse Rate Pulse Rate [Pulse Oximeter] Respiratory Rate Blood Pressure 163/97 H Blood Pressure [Right Upper Arm] Pulse Oximetry Oxygen Delivery Method <Nohemy Clements MD - Last Filed: 05/01/25 13:05> Documenting provider has reviewed patient's vital signs: yes <Patrica Rodriguez MD - Last Filed: 05/02/25 00:00> Common normals: no apparent distress and alert <Patrica Rodriguez MD - Last Filed: 05/02/25 00:00> General appearance: cooperative and well kempt <Patrica Rodriguez MD - Last Filed: 05/02/25 00:00> HENMT Common normals: normocephalic, moist oral mucous membranes and oropharynx normal <Patrica Rodriguez MD - Last Filed: 05/02/25 00:00> Head and scalp: normocephalic <MD Kenneth Moreland Last Filed: 05/02/25 00:00> Mouth: oral and palatal mucosa normal <MD Kenneth Moreland Last Filed: 05/02/25 00:00> Throat: posterior oropharynx normal <MD Kenneth Moreland Last Filed: 05/02/25 00:00> Eye Common normals: conjunctivae normal <MD Kenneth Moreland Last Filed: 05/02/25 00:00> General eye: normal appearance of both eyes <MD Kenneth Moreland Last Filed: 05/02/25 00:00> Conjunctiva: conjunctiva(e) normal <MD Kenneth Moreland Last Filed: 05/02/25 00:00> Neck & C-Spine Common normals: full ROM, no lymphadenopathy and no meningeal signs <MD Kenneth Moreland Last Filed: 05/02/25 00:00> General: normal visual inspection <MD Kenneth Moreland Last Filed: 05/02/25 00:00> Chest Common normals: inspection of chest normal <MD Kenneth Moreland Last Filed: 05/02/25 00:00> Resp Common normals: normal respiratory effort, no use of accessory muscles and clear to auscultation bilaterally <MD Kenneth Moreland Last Filed: 05/02/25 00:00> Effort & inspection: able to speak in complete sentences <MD Kenneth Moreland Last Filed: 05/02/25 00:00> Auscultation: clear to auscultation bilaterally <MD Kenneth Moreland Last Filed: 05/02/25 00:00> Cardio Common normals: regular rate, regular rhythm, S1 normal heart sound and S2 normal heart sound <MD Kenneth Moreland Last Filed: 05/02/25 00:00> Rate: regular rate <MD Kenneth Moreland Last Filed: 05/02/25 00:00> Rhythm: regular rhythm <MD Kenneth Moreland Last Filed: 05/02/25 00:00> Heart sounds: S1 normal and S2 normal <MD Kenneth Morelnad Last Filed: 05/02/25 00:00> Other: Few PVCs but overall regular. <MD Kenneth Moreland Last Filed: 05/02/25 00:00> GI Common normals: Normal to inspection, nondistended, normoactive bowel sounds present, soft to palpation, non-tender, no hepatosplenomegaly and no masses <MD Kenneth Moreland Last Filed: 05/02/25 00:00> Inspection: normal to inspection <MD Kenneth Moreland Last Filed: 05/02/25 00:00> Palpation: soft and no hepatosplenomegaly <MD Kenneth Moreland Last Filed: 05/02/25 00:00> Common normals: no CVA tenderness <MD Kenneth Moreland Last Filed: 05/02/25 00:00> Bladder/kidney exam: no CVA tenderness <MD Kenneth Moreland Last Filed: 05/02/25 00:00> Back & Pelvis Common normals: no CVA tenderness and thoracic and lumbar spine normal to inspection <MD Kenneth Moreland Last Filed: 05/02/25 00:00> Extremity Common normals: normal to inspection, full ROM and normal capillary refill <MD Kenneth Moreland Last Filed: 05/02/25 00:00> Neuro Common normals: moves all extremities <MD Kenneth oMreland Last Filed: 05/02/25 00:00> Sensorium/orientation: alert <MD Kenneth Moreland Last Filed: 05/02/25 00:00> Meningeal signs: no meningeal signs <MD Kenneth Moreland Last Filed: 05/02/25 00:00> Speech: speech normal <MD Kenneth Moreland Last Filed: 05/02/25 00:00> Motor exam: strength 5/5 throughout <MD Kenneth Moreland Last Filed: 05/02/25 00:00> Psych Common normals: speech normal <Patrica Rodriguez MD - Last Filed: 05/02/25 00:00> Appearance: well kempt <Patrica Rodriguez MD - Last Filed: 05/02/25 00:00> Attitude: engaged <Patrica Rodriguez MD - Last Filed: 05/02/25 00:00> Activity/motor behavior: appropriate eye contact <Patrica Rodriguez MD - Last Filed: 05/02/25 00:00> Speech: normal speech <Patrica Rodriguez MD - Last Filed: 05/02/25 00:00> Mood and affect: euthymic mood <Patrica Rodriguez MD - Last Filed: 05/02/25 00:00> Insight: insight good <Patrica Rodriguez MD - Last Filed: 05/02/25 00:00> Judgement: judgment good <Patrica Rodriguez MD - Last Filed: 05/02/25 00:00> Skin Narrative: Diaphoretic. No rashes otherwise. <Patrica Rodriguez MD - Last Filed: 05/02/25 00:00> Course Course ED Course: 74-year-old male with acute chest pain relieved by nitroglycerin and morphine suspicious for acute coronary syndrome. EKG is performed this is not show any acute ischemic changes after the nitroglycerin. Rhythm strip is reviewed from EMS team, very subtle changes not a full box but certainly something present in those lateral leads and aVf. Not currently in any arrhythmia. Severe hypertension noted upon EMS arrival has improved markedly to the 170s over 90s now, likely secondary to nitroglycerin. Differential shirley gnosis also including heart failure, less likely pulmonary embolism, coronary vasospasm, musculoskeletal or GI etiology but most likely cardiac. Will obtain EKG, placed on satellite project site monitor, chest x-ray. Typical cardiac labs and plan for repeat troponins. Will give aspirin 325 p.o. x1 and consider Cardiology consult. Consider nitroglycerin repeat dosing versus drip if pain returns. <Patrica Rodriguez MD - Last Filed: 05/02/25 00:00> Reevaluation(s) Reevaluation #1: Asked to take over the care of this patient. Initial troponin came back at 0.01, follow-up troponin 0.03. Repeat EKG did not show any significant changes. Patient did continue to have a mild substernal discomfort. The sublingual nitro was given which really did not significantly change the patient's symptoms. 3rd troponin remained unchanged at 0.03 and 3rd EKG unchanged with normal sinus rhythm with sinus arrhythmia, pulse 54. I did consult with Dr. Mcgee, sporting goods sales manager at [facility] felt that if we had effectively ruled out the patient with serial troponins that he could be sent home or if a clinically felt the patient needed to be admitted we could transfer the patient there. Given the elevated white count and the continued discomfort, I do think that a CT is indicated- potential for pneumonia or PE. Could not do a D-dimer as the machine was not working. We therefore proceeded straight to a chest CT after discussing this with the patient. CT positive for aortic dissection. Esmolol bolus and drip started to maintain SBP between 90-120. Pain remains minimal. Patient sitting in chair, watching TV. Discussed with vascular surgery, and import/export analyst at [place], Dr. Aki watters, who will accept the patient for transfer at this time. <Nohemy Clements MD - Last Filed: 05/01/25 13:05> Vital Signs Vital signs: Initial Vital Signs Temperature 97 F L 05/01/25 06:09 Temperature Source Temporal Artery Scan 05/01/25 06:09 Pulse Rate 75 05/01/25 06:09 Pulse Rhythm Regular 05/01/25 06:09 Respiratory Rate 16 05/01/25 06:09 Blood Pressure 179/93 H 05/01/25 06:09 Blood Pressure Mean 121 H 05/01/25 06:09 Blood Pressure Position Supine 05/01/25 06:09 Pulse Oximetry 94 05/01/25 06:09 Oxygen Delivery Method Room Air 05/01/25 06:09 Vital Signs Temperature 97 F L 05/01/25 06:09 Pulse Rate 75 05/01/25 06:09 Respiratory Rate 16 05/01/25 06:09 Blood Pressure 179/93 H 05/01/25 06:09 Pulse Oximetry 94 05/01/25 06:09 Oxygen Delivery Method Room Air 05/01/25 06:09 Temperature 97 F L 05/01/25 06:09 Pulse Rate 73 05/01/25 13:31 Respiratory Rate 17 05/01/25 13:31 Blood Pressure 163/97 H 05/01/25 13:35 Pulse Oximetry 99 05/01/25 13:31 Oxygen Delivery Method Room Air 05/01/25 06:09 <Patrica Rodriguez MD - Last Filed: 05/02/25 00:00> Initial Vital Signs Temperature 97 F L 05/01/25 06:09 Temperature Source Temporal Artery Scan 05/01/25 06:09 Pulse Rate 75 05/01/25 06:09 Pulse Rhythm Regular 05/01/25 06:09 Respiratory Rate 16 05/01/25 06:09 Blood Pressure 179/93 H 05/01/25 06:09 Blood Pressure Mean 121 H 05/01/25 06:09 Blood Pressure Position Supine 05/01/25 06:09 Pulse Oximetry 94 05/01/25 06:09 Oxygen Delivery Method Room Air 05/01/25 06:09 Vital Signs Temperature 97 F L 05/01/25 06:09 Pulse Rate 75 05/01/25 06:09 Respiratory Rate 16 05/01/25 06:09 Blood Pressure 179/93 H 05/01/25 06:09 Pulse Oximetry 94 05/01/25 06:09 Oxygen Delivery Method Room Air 05/01/25 06:09 Temperature 97 F L 05/01/25 06:09 Pulse Rate 73 05/01/25 13:31 Respiratory Rate 17 05/01/25 13:31 Blood Pressure 163/97 H 05/01/25 13:35 Pulse Oximetry 99 05/01/25 13:31 Oxygen Delivery Method Room Air 05/01/25 06:09 <Nohemy Clements MD - Last Filed: 05/01/25 13:05> Medications Administered Medications: Discontinued Medications Generic Name Dose Route Start Last Admin Trade Name Freq PRN Reason Stop Dose Admin Aspirin 324 mg 05/01/25 06:20 05/01/25 06:26 Aspirin 81 Mg Tab.Chew PO 05/01/25 06:21 Not Given ONCE ONE Esmolol HCl 40 mg 05/01/25 12:40 05/01/25 13:12 Esmolol Hcl 10 Mg/Ml Inj 0.5 mg/kg (40 mg) 05/01/25 12:41 40 mg IVP Administration ONCE ONE Esmolol HCl 500 mg/ Dextrose 100 mls @ 48.988 mls/hr 05/01/25 12:45 05/01/25 13:40 IVPB 76.55 mcg/kg/min .TITRATE RICHARD 75 mls/hr Protocol Titration 50 MCG/KG/MIN Nitroglycerin 0.4 mg 05/01/25 09:14 05/01/25 08:49 Nitroglycerin 0.4 Mg Tab.Subl SUBLINGUAL 05/01/25 09:15 0.4 mg ONCE ONE Administration <Patrica Rodriguez MD - Last Filed: 05/02/25 00:00> Discontinued Medications Generic Name Dose Route Start Last Admin Trade Name Freq PRN Reason Stop Dose Admin Aspirin 324 mg 05/01/25 06:20 05/01/25 06:26 Aspirin 81 Mg Tab.Chew PO 05/01/25 06:21 Not Given ONCE ONE Esmolol HCl 40 mg 05/01/25 12:40 05/01/25 13:12 Esmolol Hcl 10 Mg/Ml Inj 0.5 mg/kg (40 mg) 05/01/25 12:41 40 mg IVP Administration ONCE ONE Esmolol HCl 500 mg/ Dextrose 100 mls @ 48.988 mls/hr 05/01/25 12:45 05/01/25 13:40 IVPB 76.55 mcg/kg/min .TITRATE RICHARD 75 mls/hr Protocol Titration 50 MCG/KG/MIN Nitroglycerin 0.4 mg 05/01/25 09:14 05/01/25 08:49 Nitroglycerin 0.4 Mg Tab.Subl SUBLINGUAL 05/01/25 09:15 0.4 mg ONCE ONE Administration <Nohemy Clements MD - Last Filed: 05/01/25 13:05> MDM - Chest Pain MDM Narrative Medical decision making narrative: 74-year-old male presenting chest pain, positive from a aortic dissection, type B. Patient will be transferred to [place] for further management. <Nohemy Clements MD - Last Filed: 05/01/25 13:05> Medical Records Data Attestation: I reviewed the patient's medical records. <Patrica Rodriguez MD - Last Filed: 05/02/25 00:00> Lab Data Attestation: I reviewed the patient's lab results. <Patrica Rodriguez MD - Last Filed: 05/02/25 00:00> Lab results narrative: Initial troponin negative. <Patrica Rodriguez MD - Last Filed: 05/02/25 00:00> Labs: Lab Results 05/01/25 05/01/25 05/01/25 Range/Units 06:10 08:10 10:00 WBC 13.25 H (4.50-11.00) K/uL RBC 5.20 (4.30-5.90) m/uL Hgb 14.9 (13.5-17.5) gm/dL Hct 46.5 (37.0-53.0) % MCV 89 (80-100) fL MCH 29 (26-34) pg MCHC 32 (32-36) gm/dL RDW Coeff of Shu 13.9 (11.5-15.5) % Plt Count 120 L (140-440) K/uL Neut % (Auto) 53.7 (42.0-72.0) % Lymph % (Auto) 34.5 (20-44) % Trego % (Auto) 6.8 (0.0-11.0) % Eos % (Auto) 3.9 (0.0-7.0) % Baso % (Auto) 0.2 (0.0-3.0) % Neut # (Auto) 7.10 H (1.7-7.0) K/uL Lymph # (Auto) 4.60 H (0.90-2.90) K/uL Trego # (Auto) 0.90 (0.00-0.90) K/UL Eos # (Auto) 0.50 (0.00-0.50) K/uL Baso # (Auto) 0.00 (0.00-0.30) K/uL Abs Immat Gran (auto) 0.10 (0.00-0.30) K/uL Imm/Tot Granulo (auto) 0.9 % D-Dimer Quant (PE/DVT) (0.00-0.50) ug/ml Sodium 142 (135-149) mmol/L Potassium 3.4 L (3.6-5.1) mmol/L Chloride 108 (96-114) mmol/L Carbon Dioxide 26 (20-32) mmol/L Anion Gap 8 (7-15) mEq/L BUN 24 (7-30) mg/dL Creatinine 1.1 (0.5-1.5) mg/dL Estimated Creat Clear 58.92 Estimated GFR 70 ml/min Glucose 125 H (60-115) mg/dL Calcium 8.8 (8.4-10.6) mg/dL Total Bilirubin 1.1 (0.1-1.5) mg/dL AST 55 H (12-35) U/L ALT 32 (4-50) U/L Alkaline Phosphatase 64 (40-150) U/L Troponin I 0.02 (0.01-0.04) ng/mL C-Reactive Protein < 0.5 L (0.5-1.0) mg/dL NT-Pro-B Natriuret Pep 383 H (See Note) pg/mL Total Protein 6.7 (6.0-8.3) g/dL Albumin 3.9 (3.3-5.0) g/dL POC Troponin I 0.01 0.03 0.03 (0.01-0.04) ng/ml Blood Type Antibody Screen 05/01/25 Range/Units 11:45 WBC (4.50-11.00) K/uL RBC (4.30-5.90) m/uL Hgb (13.5-17.5) gm/dL Hct (37.0-53.0) % MCV (80-100) fL MCH (26-34) pg MCHC (32-36) gm/dL RDW Coeff of Shu (11.5-15.5) % Plt Count (140-440) K/uL Neut % (Auto) (42.0-72.0) % Lymph % (Auto) (20-44) % Trego % (Auto) (0.0-11.0) % Eos % (Auto) (0.0-7.0) % Baso % (Auto) (0.0-3.0) % Neut # (Auto) (1.7-7.0) K/uL Lymph # (Auto) (0.90-2.90) K/uL Trego # (Auto) (0.00-0.90) K/UL Eos # (Auto) (0.00-0.50) K/uL Baso # (Auto) (0.00-0.30) K/uL Abs Immat Gran (auto) (0.00-0.30) K/uL Imm/Tot Granulo (auto) % D-Dimer Quant (PE/DVT) > 20.00 H (0.00-0.50) ug/ml Sodium (135-149) mmol/L Potassium (3.6-5.1) mmol/L Chloride (96-114) mmol/L Carbon Dioxide (20-32) mmol/L Anion Gap (7-15) mEq/L BUN (7-30) mg/dL Creatinine (0.5-1.5) mg/dL Estimated Creat Clear Estimated GFR ml/min Glucose (60-115) mg/dL Calcium (8.4-10.6) mg/dL Total Bilirubin (0.1-1.5) mg/dL AST (12-35) U/L ALT (4-50) U/L Alkaline Phosphatase (40-150) U/L Troponin I (0.01-0.04) ng/mL C-Reactive Protein (0.5-1.0) mg/dL NT-Pro-B Natriuret Pep (See Note) pg/mL Total Protein (6.0-8.3) g/dL Albumin (3.3-5.0) g/dL POC Troponin I (0.01-0.04) ng/ml Blood Type O Positive Antibody Screen NEGATIVE <Patrica Rodriguez MD - Last Filed: 05/02/25 00:00> Lab Results 05/01/25 05/01/25 05/01/25 Range/Units 06:10 08:10 10:00 WBC 13.25 H (4.50-11.00) K/uL RBC 5.20 (4.30-5.90) m/uL Hgb 14.9 (13.5-17.5) gm/dL Hct 46.5 (37.0-53.0) % MCV 89 (80-100) fL MCH 29 (26-34) pg MCHC 32 (32-36) gm/dL RDW Coeff of Shu 13.9 (11.5-15.5) % Plt Count 120 L (140-440) K/uL Neut % (Auto) 53.7 (42.0-72.0) % Lymph % (Auto) 34.5 (20-44) % Trego % (Auto) 6.8 (0.0-11.0) % Eos % (Auto) 3.9 (0.0-7.0) % Baso % (Auto) 0.2 (0.0-3.0) % Neut # (Auto) 7.10 H (1.7-7.0) K/uL Lymph # (Auto) 4.60 H (0.90-2.90) K/uL Trego # (Auto) 0.90 (0.00-0.90) K/UL Eos # (Auto) 0.50 (0.00-0.50) K/uL Baso # (Auto) 0.00 (0.00-0.30) K/uL Abs Immat Gran (auto) 0.10 (0.00-0.30) K/uL Imm/Tot Granulo (auto) 0.9 % D-Dimer Quant (PE/DVT) (0.00-0.50) ug/ml Sodium 142 (135-149) mmol/L Potassium 3.4 L (3.6-5.1) mmol/L Chloride 108 (96-114) mmol/L Carbon Dioxide 26 (20-32) mmol/L Anion Gap 8 (7-15) mEq/L BUN 24 (7-30) mg/dL Creatinine 1.1 (0.5-1.5) mg/dL Estimated Creat Clear 58.92 Estimated GFR 70 ml/min Glucose 125 H (60-115) mg/dL Calcium 8.8 (8.4-10.6) mg/dL Total Bilirubin 1.1 (0.1-1.5) mg/dL AST 55 H (12-35) U/L ALT 32 (4-50) U/L Alkaline Phosphatase 64 (40-150) U/L Troponin I 0.02 (0.01-0.04) ng/mL C-Reactive Protein < 0.5 L (0.5-1.0) mg/dL NT-Pro-B Natriuret Pep 383 H (See Note) pg/mL Total Protein 6.7 (6.0-8.3) g/dL Albumin 3.9 (3.3-5.0) g/dL POC Troponin I 0.01 0.03 0.03 (0.01-0.04) ng/ml Blood Type Antibody Screen 05/01/25 Range/Units 11:45 WBC (4.50-11.00) K/uL RBC (4.30-5.90) m/uL Hgb (13.5-17.5) gm/dL Hct (37.0-53.0) % MCV (80-100) fL MCH (26-34) pg MCHC (32-36) gm/dL RDW Coeff of Shu (11.5-15.5) % Plt Count (140-440) K/uL Neut % (Auto) (42.0-72.0) % Lymph % (Auto) (20-44) % Trego % (Auto) (0.0-11.0) % Eos % (Auto) (0.0-7.0) % Baso % (Auto) (0.0-3.0) % Neut # (Auto) (1.7-7.0) K/uL Lymph # (Auto) (0.90-2.90) K/uL Trego # (Auto) (0.00-0.90) K/UL Eos # (Auto) (0.00-0.50) K/uL Baso # (Auto) (0.00-0.30) K/uL Abs Immat Gran (auto) (0.00-0.30) K/uL Imm/Tot Granulo (auto) % D-Dimer Quant (PE/DVT) > 20.00 H (0.00-0.50) ug/ml Sodium (135-149) mmol/L Potassium (3.6-5.1) mmol/L Chloride (96-114) mmol/L Carbon Dioxide (20-32) mmol/L Anion Gap (7-15) mEq/L BUN (7-30) mg/dL Creatinine (0.5-1.5) mg/dL Estimated Creat Clear Estimated GFR ml/min Glucose (60-115) mg/dL Calcium (8.4-10.6) mg/dL Total Bilirubin (0.1-1.5) mg/dL AST (12-35) U/L ALT (4-50) U/L Alkaline Phosphatase (40-150) U/L Troponin I (0.01-0.04) ng/mL C-Reactive Protein (0.5-1.0) mg/dL NT-Pro-B Natriuret Pep (See Note) pg/mL Total Protein (6.0-8.3) g/dL Albumin (3.3-5.0) g/dL POC Troponin I (0.01-0.04) ng/ml Blood Type O Positive Antibody Screen NEGATIVE <Nohemy Clements MD - Last Filed: 05/01/25 13:05> Imaging Data Chest x-ray: Attestation: I have reviewed the pertinent imaging results. <Patrica Rodriguez MD - Last Filed: 05/02/25 00:00> My impression: Normal chest x-ray. Normal cardiac silhouette. No effusions, infiltrates or cardiomegaly. <Patrica Rodriguez MD - Last Filed: 05/02/25 00:00> Radiologist's impression: IMPRESSION: Possible (equivocal) cephalization of the pulmonary vascular markings suggesting pulmonary venous congestion. Recommend clinical correlation as to possible congestive heart failure. No other findings relevant to the history of chest pain, not otherwise specified. Dictated by Rah Leonard MD @ 05/01/2025 6:34:42 AM <Patrica Rodriguez MD - Last Filed: 05/02/25 00:00> ECG Data Attestation: I personally reviewed and interpreted this ECG as follows: <Patrica Rodriguez MD - Last Filed: 05/02/25 00:00> ECG interpretation date: 05/01/25 <Patrica Rodriguez MD - Last Filed: 05/02/25 00:00> ECG interpretation time: 06:12 <Patrica Rodriguez MD - Last Filed: 05/02/25 00:00> Prior ECG tracings: not available for review <Patrica Rodriguez MD - Last Filed: 05/02/25 00:00> Interpretation: Sinus rhythm with a few PVCs. Rate is 77. Normal intervals and axis. Nonspecific changes ( mild depression) in the leads 2, V4 V5 and V6 which are not 1 full box. Abnormal EKG, suspicious for some lateral ischemia. <Patrica Rodriguez MD - Last Filed: 05/02/25 00:00> Critical Care Time Critical Care Time Total Critical Care Time in Minutes: 60 <Nohemy Clements MD - Last Filed: 05/01/25 13:05> Discharge Plan Discharge Clinical Impression: Aortic dissection <Patrica Rodriguez MD - Last Filed: 05/02/25 00:00> Patient Disposition: [facility] <Patrica Rodriguez MD - Last Filed: 05/02/25 00:00> Condition: Guarded <Patrica Rodriguez MD - Last Filed: 05/02/25 00:00> Prescriptions: No Action Tylenol Extra Strength 500 mg powder in packet 500 mg PO Q6H PRN ibuprofen 200 mg capsule 200 mg PO Q6H PRN metoprolol succinate 25 mg tablet extended release 24 hr 12.5 mg PO QDAY Qty: 45 3RF olopatadine [Pataday Once Daily Relief] 0.2 % drops 1 drp ophthalmic (eye) QDAY Qty: 2.5 5RF <Patrica Rodriguez MD - Last Filed: 05/02/25 00:00> Stand Alone Forms: [facility] Info Instructions <Patrica Rodriguez MD - Last Filed: 05/02/25 00:00>
[2025-05-01 06:21] LABS: Hematocrit 46.5 % (37.0-53.0); Hemoglobin* 14.9 gm/dL (13.5-17.5); Immature Granulocytes Abs Auto 0.10 K/uL (0.00-0.30); Immature Granulocytes Pct Auto 0.9 %; Lymphocytes Absolute Auto 4.60 K/uL (0.90-2.90); Mean Corpuscular HGB Conc 32 gm/dL (32-36); Mean Corpuscular Hemoglobin 29 pg (26-34); Mean Corpuscular Volume 89 fL (80-100); RDW Coefficient of Variation % 13.9 % (11.5-15.5); Red Blood Count 5.20 m/uL (4.30-5.90); Slide Review Reflex No; White Blood Count* 13.25 K/uL (4.50-11.00)
[2025-05-01 06:31] LABS: Troponin, Point-of-Care* 0.01 ng/ml (0.01-0.04)
[2025-05-01 06:34] LABS: Albumin* 3.9 g/dL (3.3-5.0); Chloride* 108 mmol/L (96-114); Potassium* 3.4 mmol/L (3.6-5.1); Sodium* 142 mmol/L (135-149)
[2025-05-01 06:36] LABS: Alanine Aminotransferase* 32 U/L (4-50); Aspartate Amino Transferase* 55 U/L (12-35); Blood Urea Nitrogen* 24 mg/dL (7-30); Creatinine* 1.1 mg/dL (0.5-1.5); Est. Creatinine Clearance* 58.92; Estimated Glomerular Filt Rate 70 ml/min
[2025-05-01 06:37] LABS: Alkaline Phosphatase* 64 U/L (40-150); Anion Gap 8 mEq/L (7-15); Bilirubin Total* 1.1 mg/dL (0.1-1.5); Calcium* 8.8 mg/dL (8.4-10.6); Carbon Dioxide* 26 mmol/L (20-32); Glucose* 125 mg/dL (60-115); Total Protein* 6.7 g/dL (6.0-8.3)
[2025-05-01 06:49] LABS: NT Pro B Type NatriureticPept* 383 pg/mL (See Note)
[2025-05-01 08:35] LABS: Troponin, Point-of-Care* 0.03 ng/ml (0.01-0.04)
[2025-05-01] MEDS: NITROGLYCERIN 0.4 MG TAB.SUBL SUBLINGUAL (08:49)
[2025-05-01 10:18] LABS: Troponin, Point-of-Care* 0.03 ng/ml (0.01-0.04)
--- NOTE | 2025-05-01 11:17 | CRLHL7_ITS ---
For Patients: As a result of the 21st Century Cures Act, medical imaging exams and procedure reports are released immediately into your electronic medical record. You may view this report before your referring provider. If you have questions, please contact your health care provider. INDICATION: CHEST PAIN, HISTORY OF HEART IRREGULARITIES. TECHNIQUE: CT chest PE was acquired with 95 cc Isovue 370 IV contrast. COMPARISON: None. FINDINGS: Heart and vasculature: Contrast opacification of the pulmonary arterial tree is adequate. No sign of pulmonary embolism. Heart size is normal. There is an age-indeterminate aortic dissection which appears to arise just distal to the left subclavian artery origin and extends into the partially visualized abdomen, at least to the level of the right renal artery origin, with the celiac axis at least partially arising from the false lumen. This results in moderate luminal stenosis at the level of the inferior descending thoracic aorta. Lungs: 0.7 cm ground-glass nodule in the right middle lobe along the minor fissure (5/102). Streaky bibasilar subsegmental atelectasis/scarring. Pleura: No pleural effusion or pneumothorax. Lymph nodes/mediastinum: No mediastinal, hilar, or axillary adenopathy. Chest wall: Along the lateral aspect of the left pectoralis musculature, there is a fat density ovoid focus that measures 4.9 x 2.9 cm (4/99), compatible with a low-grade lipomatous lesion, likely a lipoma. Upper abdomen: Dissection extends into the abdomen, as above. Bones: No acute or suspicious osseous abnormalities. Spinal stimulator electrodes extend superiorly to the T8 level. IMPRESSION: 1. There is an aortic dissection, which is favored to be type B, but is incompletely evaluated on this pulmonary artery examination. A dedicated CTA chest abdomen pelvis dissection protocol is recommended for further evaluation. 2. No acute pulmonary embolism. 3. Right middle lobe 0.7 cm ground-glass nodule. Follow-up CT in 3-6 months is recommended. These findings were discussed with Dr. Clements at 12:36 p.m. Please note that all CT scans at this facility use dose modulation, iterative reconstruction, and/or weight-based dosing when appropriate to reduce radiation dose to as low as reasonably achievable. Dictated by Konstantin Sands MD @ 05/01/2025 12:37:59 PM (Electronically Signed)
[2025-05-01 12:29] LABS: D Dimer Quantitative* > 20.00 ug/ml (0.00-0.50)
[2025-05-01] MEDS: ESMOLOL HCL 40 MG IVP (13:12)
[2025-05-01] MEDS: ESMOLOL HCL IVPB (13:15)
[2025-05-01] MEDS: DEXTROSE 5% IVPB (13:15)
== END 2025-05-01 13:50 | disposition short-term general hospital (02) ==
PROVIDERS: Family Medicine; Emergency Provider Family Medicine; PCP Family Medicine
DX: I71.00 Dissection of unspecified site of aorta (principal)
CPT/HCPCS: 36415; 71045; 71275; 80053; 83880; 84484; 85025; 85379; 86140; 86850; 86900; 86901; 93005; 99285; 99291; A9270; Q9967

== ENCOUNTER 2025-05-01 13:35 | Outpatient (CLI) | payer MEDICARE, SELFPAY | END 2025-05-01 13:36 | disposition home or self-care (01) | LOC: AMB 05-05 10:13 | PROVIDERS: PCP Family Medicine; Visit Provider Family Medicine | DX: R07.89 Other chest pain (principal); I71.00 Dissection of unspecified site of aorta | CPT/HCPCS: A0425; A0434 ==

== ENCOUNTER 2025-05-12 16:13 | Outpatient (CLI) | payer MEDICARE, SELFPAY | END 2025-05-12 16:14 | disposition home or self-care (01) | PROVIDERS: PCP Family Medicine; Visit Provider Internal Medicine | DX: I71.00 Dissection of unspecified site of aorta (principal); D69.6 Thrombocytopenia, unspecified | CPT/HCPCS: 80048 ==

== ENCOUNTER 2025-08-13 10:41 | Outpatient (CLI) | payer MEDICARE, SELFPAY ==
--- NOTE | 2025-08-13 11:00 | CRLHL7_ITS ---
For Patients: As a result of the Century Cures Act, medical imaging exams and procedure reports are released immediately into your electronic medical record. You may view this report before your referring provider. If you have questions, please contact your health care provider. INDICATION: Nodule follow-up TECHNIQUE: CT chest without contrast. COMPARISON: : 05/01/2025. FINDINGS: Lungs and pleura: Unchanged ground-glass nodule in the middle lobe abutting the minor fissure measuring 7 millimeters average diameter (series 3, image 57). No new pulmonary nodule. No dense airspace consolidation. No pleural effusion or pneumothorax Heart and vasculature: No aortic dissection, suboptimally assessed without contrast. Aortic contours appear similar compared to prior. Lymph nodes/mediastinum: No mediastinal, hilar, or axillary adenopathy. Chest wall: No masses. Upper abdomen: Left renal cyst. Bones: Thoracic spondylosis. No suspicious osseous lesion IMPRESSION: 1. Unchanged 7 millimeter ground-glass attenuation nodule in the middle lobe. Per Fleischner society guidelines, recommend 2 year follow-up CT. 2. Known aortic dissection, suboptimally assessed without contrast. Aortic contours grossly similar. Please note that all CT scans at this facility use dose modulation, iterative reconstruction, and/or weight-based dosing when appropriate to reduce radiation dose to as low as reasonably achievable. Dictated by Neal Macias MD @ 08/14/2025 1:08:53 PM (Electronically Signed)
== END 2025-08-13 10:42 | disposition home or self-care (01) ==
LOC: CT 10:42
PROVIDERS: PCP Family Medicine; Visit Provider Family Medicine
DX: R91.1 Solitary pulmonary nodule (principal); R05.9 Cough, unspecified
CPT/HCPCS: 71250

== ENCOUNTER 2025-09-30 07:30 | Outpatient (CLI) | payer MEDICARE, SELFPAY | END 2025-09-30 07:31 | disposition home or self-care (01) | LOC: NFLDREF 10-02 14:54 | PROVIDERS: PCP Family Medicine; Referring Provider Family Medicine; Visit Provider Family Medicine | DX: E78.5 Hyperlipidemia, unspecified (principal) | CPT/HCPCS: 80061 ==